=== PATIENT | male | born 1955 | race Caucasian/White ===

== ENCOUNTER 2017-03-22 13:52 | Inpatient (IN) ==
--- NOTE | 2017-03-22 14:08 | Emergency Department Note ---
Disposition Clinical Impression: Neutropenic fever UTI (urinary tract infection) Qualifiers: Urinary tract infection type: site unspecified Hematuria presence: with hematuria Qualified Code(s): N39.0 - Urinary tract infection, site not specified Disposition: Admitted As Inpatient Condition: Undetermined Referrals: Edmund Melton DO [Primary Care Provider] - Forms: ED Satisfaction Letter Time of Disposition: 15:09 Fever HPI - General Chief Complaint: ED Fever Stated Complaint: Fever Time Seen by Provider: 03/22/17 13:57 Source: patient Mode of arrival: EMS Limitations: no limitations Nursing Notes Reviewed: Yes Vital Signs Reviewed: Yes - History of Present Illness HPI Narrative: 61-year-old male with history of lung cancer, bladder cancer, renal cancer on the left side with his kidney removed on the left and a urostomy tube placed on the right arrives [facility] emergency department after concern for neutropenia and fever. The patient went to [facility] who he sees for his cancer treatments today for evaluation to discuss advanced directives and the patient was found to have a fever as high as 104. The patient denies any abdominal pain, cough, neck stiffness, headache, nasal congestion, any other complaints at this time. He is resting comfortably. The patient is noted to be slightly pale in color but acting appropriately and answering all questions. The patient is afebrile here in the emergency department. Exam is benign with the exception of a urostomy tube on the right and slightly pale discoloration of the patient's skin. Patient has an absolute neutrophil count of 380. Pt Subjective Complaint: fever Onset (ago): unknown Maximum Temperature Reported: 104 F Temperature Source: oral Context: on chemotherapy Associated symptoms: Reports: denies other symptoms Improves with: nothing Worsens with: nothing Treatments prior to arrival fever: none - Related Data Home Medications Medication Instructions Recorded Confirmed Aspirin 81 mg PO DAILY 02/21/17 03/22/17 Carvedilol [Coreg] 6.25 mg PO BIDWM 02/21/17 03/22/17 Ferrous Sulfate [Iron] 650 mg PO BID 02/21/17 03/22/17 Gabapentin [Neurontin] 600 mg PO BID 02/21/17 03/22/17 Multivits,Ca,Min/Iron/FA/Lycop 1 tab PO DAILY 02/21/17 03/22/17 [Centrum Men's Tablet] Orphenadrine Citrate 100 mg PO BID PRN 02/21/17 03/22/17 Rosuvastatin [Crestor] 40 mg PO HS 02/21/17 03/22/17 Valsartan [Diovan] 80 mg PO DAILY 02/21/17 03/22/17 Ascorbate Calcium [Vitamin C] 500 mg PO DAILY 03/22/17 03/22/17 Docusate [Colace] 100 mg PO DAILY 03/22/17 03/22/17 Naproxen Sodium [Aleve] 220 mg PO Q12H PRN 03/22/17 03/22/17 Previous Rx's Medication Instructions Recorded Ondansetron [Zofran] 8 mg PO Q8HR #90 tablet 02/21/17 Prochlorperazine Maleate 10 mg PO Q8HR PRN #90 tablet 02/21/17 [Compazine] Ciprofloxacin [Cipro] 500 mg PO BID #20 tablet 03/22/17 Allergies Allergy/AdvReac Type Severity Reaction Status Date / Time No Known Allergies Allergy Verified 03/22/17 10:00 All systems ED: reviewed and negative except as stated. Constitutional: Reports: fever. Denies: chills, weakness Eyes: Denies: eye pain, eye discharge, vision change ENT ED: Denies: ear pain, throat pain, dental pain, hearing loss, epistaxis, congestion, dysphagia Cardiovascular: Denies: chest pain, palpitations, dyspnea on exertion, edema, syncope Respiratory: Denies: cough, dyspnea, wheezes, hemoptysis, stridor Gastrointestinal: Denies: abdominal pain, nausea, vomiting, diarrhea, constipation, hematemesis, melena, hematochezia Genitourinary: Reports: other (Urostomy) Musculoskeletal: Denies: back pain, neck pain, arthralgia, myalgia Integumentary: Denies: rash, abrasion, lesions Neurological: Denies: headache, weakness, numbness, paresthesias, confusion, abnormal gait, vertigo Fever PMH - Past Medical History Medical history: Reports: cancer, diabetes, hyperlipidemia, hypertension, liver disease, other Surgical history: Reports: other (Nephectomy, Right urostomy) Psychiatric history: Reports: no psych history - Social History Smoking Status: Never smoker Alcohol use: Reports: none Drug use: Reports: none Physical Exam - General Limitations: no limitations General appearance: alert, in no apparent distress - Head Head exam: atraumatic, normocephalic, normal inspection - Eye Eye exam: Present: normal appearance, PERRL, EOMI - ENT ENT exam: normal exam, normal oropharynx, mucous membranes moist - Neck Neck exam: Present: normal inspection, full ROM, trachea midline - Chest Chest inspection: Present: normal inspection, symmetric chest wall rise - Respiratory Respiratory exam: Present: normal lung sounds bilaterally - Cardiovascular Cardiovascular exam: Present: regular rate, normal rhythm, normal heart sounds - Abdominal Exam Abdominal exam: Present: soft, Non-Tender, scar, other (Right-sided nephrostomy tube). Absent: tenderness, distention, guarding, rebound, rigidity - Male exam: Present: normal inspection, normal testicular lie, other (uncircumsised ) - Extremities Exam Extremities exam: Present: normal inspection, full ROM. Absent: tenderness, pedal edema - Back Exam Back exam: Present: normal inspection, full ROM. Absent: tenderness - Neurological Exam Neurological exam: Present: alert, oriented X3 - Skin Skin exam: Present: warm, dry, intact, normal color Course - Reevaluation(s) Reevaluation #1: Patient has no nuchal rigidity, no headaches, no AMS. No abdominal pain, rash, cough, sputum production, dyspnea. No diarrhea or bloody stools. The patient has a urostomy in place that is likely chronically infected but given the patient's low absolute neutrophil count I am concerned about possible bacteremia associated with disseminated urine pathogens. Without any other symptoms at this time, I do not feel as though further testing would benefit the patient. We will have the patient on broad-spectrum antibiotics. Lactic acid currently pending. Time: 14:45 - Consultations Consultation #1: We spoke with Dr. Cm in oncology who agreed that the patient should be admitted to the hospital and begun on broad spectrum antibiotic. Patient made aware and agrees to plan. Currently waiting lactic acid level. Time: 14:35 Vital Signs Temperature 98.8 F 03/22/17 13:55 Pulse Rate 86 03/22/17 13:55 Respiratory Rate 16 03/22/17 13:55 Blood Pressure 146/81 03/22/17 13:55 O2 Sat by Pulse Oximetry 98 03/22/17 13:55 Temperature 98.8 F 03/22/17 13:55 Pulse Rate 76 03/22/17 15:00 Respiratory Rate 16 03/22/17 15:00 Blood Pressure 110/82 03/22/17 15:00 O2 Sat by Pulse Oximetry 98 03/22/17 15:00 Oxygen Delivery Oxygen Delivery Room Air Fever - MDM Narrative Medical decision making narrative: We will admit the patient to the hospital for further care given the patient is experiencing neutropenic fever. The patient was started on vancomycin and Zosyn. The only source that is identified at this time is a UTI out of the urostomy. This is likely chronic but given the patient's neutropenia I am concerned about possible dissemination of the patient's bacteria. The patient has no other symptoms or signs indicative of infection. Workup here in the emergency department demonstrates no elevation of lactic acid and a chest x-ray demonstrates no acute process. Labs drawn at the [facility] does demonstrate findings consistent with a low absolute neutrophil count as well as possible urinary tract infection. We will admit the patient to the hospitalist at this time accepted by Dr. Jefferson. Patient agrees to plan. - Medical Records Medical records reviewed: Yes I reviewed the patient's medical records. - Lab Data Lab results reviewed: Yes I reviewed the patient's lab results. Lab Results 03/22/17 Range/Units 14:47 Lactic Acid 0.9 (0.5-2.2) mmol/L - Radiology Data Radiology results reviewed: Yes I reviewed the patient's radiology results.
[2017-03-22] MEDS ORDERED: Piperacillin/Tazobactam 3.375 GM in D5% in Water (Mini-Bag+) 100 ML IVPB ONE (14:32)
[2017-03-22] MEDS ORDERED: 0.9 % Sodium Chloride 1,000 ML IVC ONE (14:34)
[2017-03-22] MEDS ORDERED: Vancomycin 1,000 MG in D5% in Water 250 ML IVPB ONE (14:39)
--- NOTE | 2017-03-22 14:45 | Emergency Department Note ---
START Narrative - START START: I examined this patient and my medical decision-making was reviewed with the Resident Physician. I agree with the documented findings, disposition and treatment plan as described except to the extent set forth below. 61-year-old male presents emergency room for neutropenic fever. Patient is on chemotherapy for bladder cancer with lung metastasis. Patient has a chronic urostomy. Source at this time appears to be a urine infection. His chest x- ray was normal. He has no GI symptoms. No abdominal pain. No rashes. No cough or sputum production. He denies any neck pain or neck stiffness. We have ordered IV vancomycin and Zosyn. Oncology has been consult. Patient will need to be admitted.
[2017-03-22] MEDS ORDERED: Naloxone 0.4 MG/ML INJ IVP PRN (16:10)
[2017-03-22] MEDS ORDERED: Ondansetron 4 MG/2 ML VIAL IVP PRN (16:10)
[2017-03-22] MEDS ORDERED: Acetaminophen 325 MG TABLET PO PRN (16:10)
[2017-03-22] MEDS ORDERED: *HR* Morphine 2 MG/ML SYRINGE IVP PRN (16:10)
[2017-03-22 16:33] LABS: INR 1.2; Prothrombin Time 12.7 Seconds (9.4-12.1)
--- NOTE | 2017-03-22 17:44 | Internal Med History&Physical ---
Date of Encounter: 03/22/17 Time of Encounter: 17:15 Assessment and Plan (1) Neutropenic fever Current visit: Yes Status: Acute Neutropenic fever, present on admission - with severe neutropenia and low absolute neutrophil count - secondary to chemotherapy Patient does have UTI present on admission Continue empiric IV Zosyn, IV Vancomycin, neutropenic precautions Culture - pending Chest x-ray - no acute cardiopulmonary abnormality Cardiac telemetry, labs in a.m., monitor closely (2) UTI (urinary tract infection) Current visit: Yes Status: Acute UTI present on admission, likely secondary to gram-negative bacteria Continue empiric IV Zosyn, IV Vancomycin Cultures - pending Qualifiers: Urinary tract infection type: site unspecified Hematuria presence: without hematuria Qualified Code(s): N39.0 - Urinary tract infection, site not specified (3) 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 Current visit: No Status: Acute Patient has metastatic urothelial cancer, 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 Currently on chemotherapy, follows up with oncology regularly Patient has a history of bladder cancer, renal cancer and prostate cancer He is undergone radical cystectomy, left nephro ureterectomy and prostatectomy Oncology consult (4) Hypertension Current visit: Yes Status: Chronic Essential hypertension, controlled, monitor Continue home dose of Valsartan and Coreg Qualifiers: Hypertension type: essential hypertension Qualified Code(s): I10 - Essential (primary) hypertension (5) Hyperlipidemia Current visit: Yes Status: Chronic Continue Crestor Qualifiers: Hyperlipidemia type: unspecified Qualified Code(s): E78.5 - Hyperlipidemia , unspecified (6) Nonalcoholic fatty liver disease Current visit: Yes Status: Chronic (7) DVT prophylaxis Current visit: Yes Status: Acute Continue SCDs Internal Medicine - H&P: HPI Chief complaint: Fever, neutropenia Admitted From: Emergency Dept Plans for Post Hospital Care: Home History of present illness: Mr. Randolph is a 61 year old male with PMH of bladder cancer, renal carcinoma s/ p left nephrectomy, lung cancer, hyperlipidemia, hypertension, diabetes and s/p urostomy. Patient presents to the ED with complaints of fever. Examined in the room. Patient is awake and alert. Not in any distress. Able to provide history. Family is at bedside. Patient states he was on his way to see his oncologist to discuss advanced directives earlier today. He suddenly developed fever, which was recorded as 104. He denies chest pain or shortness of breath. Denies abdominal pain or diarrhea or vomiting. Denies cough or headache or dizziness. Denies neck stiffness or nasal congestion or any other complaints. No altered mental status. Patient was advised to go to the ER by his oncologist for fever and neutropenia. Patient is currently undergoing chemotherapy for lung cancer. He follows up regularly with his oncologist. Initial workup in the ED is negative. Patient had labs drawn this morning and he was found to have severe neutropenia with a severely low absolute neutrophil count. Patient is being admitted for neutropenic fever. He will need IV antibiotics, cultures and he will be on neutropenic precautions. CODE STATUS full code. Past Med Surg Social Fam HX - Past Medical History Medical history: cancer, diabetes, hyperlipidemia, hypertension, liver disease, other Psychiatric history: no psych history - Past Surgical History Surgical History: other (Nephrectomy, Right urostomy) - Social History Smoking Status: Never smoker Smokeless Tobacco Status: No Alcohol use: none Drug use: none Internal Medicine - H&P: Meds Aspirin 81 mg PO DAILY 02/21/17 [History] Carvedilol [Coreg] 6.25 mg PO BIDWM 02/21/17 [History] Ferrous Sulfate [Iron] 650 mg PO BID 02/21/17 [History] Gabapentin [Neurontin] 600 mg PO BID 02/21/17 [History] Multivits,Ca,Min/Iron/FA/Lycop [Centrum Men's Tablet] 1 tab PO DAILY 02/21/17 [ History] Ondansetron [Zofran] 8 mg PO Q8HR #90 tablet 02/21/17 [Rx] Orphenadrine Citrate 100 mg PO BID PRN 02/21/17 [History] Prochlorperazine Maleate [Compazine] 10 mg PO Q8HR PRN #90 tablet 02/21/17 [Rx] Rosuvastatin [Crestor] 40 mg PO HS 02/21/17 [History] Valsartan [Diovan] 80 mg PO DAILY 02/21/17 [History] Ascorbate Calcium [Vitamin C] 500 mg PO DAILY 03/22/17 [History] Ciprofloxacin [Cipro] 500 mg PO BID #20 tablet 03/22/17 [Rx] Docusate [Colace] 100 mg PO DAILY 03/22/17 [History] Naproxen Sodium [Aleve] 220 mg PO Q12H PRN 03/22/17 [History] 3 Allergy/AdvReac Type Severity Reaction Status Date / Time No Known Allergies Allergy Verified 03/22/17 10:00 All Systems PM: A 10-system review of systems was performed and is negative for pertinent findings except as documented above in the HPI. - Constitutional Constitutional: fatigue, fever(s), weakness - EENT Eyes: no blurry vision - Cardiovascular Cardiovascular ROS IM: no chest pain, no claudication, no diaphoresis, no dyspnea, no dyspnea on exertion, no edema, no lightheadedness, no orthopnea, no palpitations, no syncope - Respiratory Respiratory: no cough, no dyspnea, no hemoptysis, no dyspnea on exertion, no wheezing, no chest congestion - Gastrointestinal Gastrointestinal: no abdominal pain, no bloating, no cramping, no diarrhea, no hematemesis, no hematochezia, no melena, no nausea, no vomiting - Genitourinary Genitourinary ROS male: no dysuria, no flank pain - Musculoskeletal Musculoskeletal ROS IM: no back pain - Neurological Neurological ROS: no abnormal gait, no confusion, no dizziness, no focal weakness, no numbness, no tingling - Constitutional Vitals: Temp Pulse Resp BP Pulse Ox 98.0 F 73 14 134/83 97 03/22/17 16:27 03/22/17 16:27 03/22/17 16:27 03/22/17 16:27 03/22/17 16:27 General appearance: Present: cooperative, A&O X 3, pleasant, no acute distress, answers questions appropriately - Head Head exam: Present: atraumatic - Eye Eye exam: Present: EOMI - ENT ENT exam: Present: mucous membranes moist - Respiratory Respiratory exam: Present: CTAB. Absent: accessory muscle use, chest wall tenderness, rales, rhonchi, wheezes, tachypnea - Cardiovascular Cardiovascular exam: Present: RRR, +S1, +S2 - GI/Abdominal GI/Abdominal exam: Present: soft. Absent: distended, firm, guarding, tenderness Additional comments: Urostomy bag in place, draining clear urine, site looks okay - Extremities Exam Extremities exam: Present: radial pulses palpable and symmetrical. Absent: calf tenderness, cyanotic, pedal edema - Neurological Exam Neurological exam: Present: alert, CN II-XII intact, oriented X3, no focal deficits. Absent: facial droop, speech deficit
[2017-03-22] MEDS: Piperacillin/Tazobactam 3.375 GM in D5% in Water (Mini-Bag+) 100 ML IVPB SCH (17:48)
[2017-03-22] MEDS: 0.9 % Sodium Chloride 1,000 ML IVC SCH (17:49)
--- NOTE | 2017-03-22 18:58 | Oncology Inp Consult Note ---
Date of Encounter: 03/22/17 Time of Encounter: 18:56 Assessment and Plan (1) Neutropenic sepsis Status: Acute Assessment and plan: - ANC of 400 consistent with severe chemo-related neutropenia. - Lactic acid within normal limits, but blood pressure remains soft. Tachycardia has improved, now HR within normal parameters - I appreciate primary team excellent care. Continue IVF, broad spectrum antibiotics wth vanco/zosyn. Follow up results of urinary and blood cultures. Source in view of abnormal UA seems to be his urine, although he reports not clear localizing symptoms.CXR not suggestive of PNA. - Neutropnic precautions. - I would suggest to add neupogen 300 mcg SQ daily until ANC is 1000 or above. (2) Anemia Status: Acute Assessment and plan: More likely secondary to recent chemotherapy. Continue monitoring with daily CBCs and transfuse if Hb levels are 7 or less ( or HCT 21 or lower). Qualifiers: Anemia type: other cause Other causes of anemia: other cause, not classified Qualified Code(s): D64.89 - Other specified anemias (3) 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 Status: Acute Assessment and plan: - Continue holding chemotherapy ( it was due tomorrow) in view of severe neutropenia. Please arrange for follow up with primary oncology once he is ready for discharge to discuss time to resume chemotherapy. - Data of Consult Requesting Physician: Jalen Anguiano DO Primary Care Provider: Edmund Melton DO - Consult Narrative Reason for consult: management of sepsis in the settings of severe neutropenia History of present illness: Mr. Randolph is a 61 year old male with history of DM, fatty liver disease, HTN, and history of bladder cancer that has progressed to stage IV with lung mets. His previous management included removal of bladder, prostate and left kidney at [facility], being followed by Dr. Suh since 2012. 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 His lung metastasis were found with a CT chest in november 2016, and followed with CT in january 2017, biopsy was not considered due to suggestive radiologic pattern. He was started on gemzar and carboplatin on 03/02/17. Chemo held on 03/16 due to plaelets of 25,000. He was seen today at the outpatient oncology clinic, and referred to the ED after reporting fever of 104F. His temperature in the office was 103F, HR 124, and SBP in the 120s. He was evaluated in the ED, his urine shows nitrates suspicious for UTI related sepsis and started on broad spectrum antibiotics with zosyn. Primary team added vanco for empiric coverage untill results of blood and urine cultures are available. He denies a history of frequent UTI. He reports shivering early today, but feels that his symptoms have improved. Reports that his SBP usually runs in the 130s -110s, currently in the 100-120 range, but not tachycardic. He reports improvement of his subjective complaints since admission. His hemoglobin have dropped a few points, down to 10, but there are not bleeding events. His platelet count remains within normal parameters. His serum lactic acid was within normal values. Family was at bedside during the visit. Past Med Surg Social Fam HX - Past Medical History Medical history: cancer, diabetes, hyperlipidemia, hypertension, liver disease, other Psychiatric history: no psych history - Past Surgical History Surgical History: other (Nephrectomy, Right urostomy) - Social History Smoking Status: Never smoker Smokeless Tobacco Status: No Alcohol use: none Drug use: none Medications and Allergies Aspirin 81 mg PO DAILY 02/21/17 [History] Carvedilol [Coreg] 6.25 mg PO BIDWM 02/21/17 [History] Ferrous Sulfate [Iron] 650 mg PO BID 02/21/17 [History] Gabapentin [Neurontin] 600 mg PO BID 02/21/17 [History] Multivits,Ca,Min/Iron/FA/Lycop [Centrum Men's Tablet] 1 tab PO DAILY 02/21/17 [ History] Ondansetron [Zofran] 8 mg PO Q8HR #90 tablet 02/21/17 [Rx] Orphenadrine Citrate 100 mg PO BID PRN 02/21/17 [History] Prochlorperazine Maleate [Compazine] 10 mg PO Q8HR PRN #90 tablet 02/21/17 [Rx] Rosuvastatin [Crestor] 40 mg PO HS 02/21/17 [History] Valsartan [Diovan] 80 mg PO DAILY 02/21/17 [History] Ascorbate Calcium [Vitamin C] 500 mg PO DAILY 03/22/17 [History] Ciprofloxacin [Cipro] 500 mg PO BID #20 tablet 03/22/17 [Rx] Docusate [Colace] 100 mg PO DAILY 03/22/17 [History] Naproxen Sodium [Aleve] 220 mg PO Q12H PRN 03/22/17 [History] 3 Allergy/AdvReac Type Severity Reaction Status Date / Time No Known Allergies Allergy Verified 03/22/17 10:00 Constitutional: Present: chills, fever(s) Cardiovascular: Present: rapid heart rate. Absent: chest pain, chest pain with activity, dyspnea Respiratory: Absent: cough, dyspnea, hemoptysis Gastrointestinal: Absent: abdominal pain, dysphagia Genitourinary: other (urostomy in place.) Musculoskeletal: Absent: joint swelling, myalgias Integumentary: Absent: photosensitivity, pruritus Neurological: Absent: behavioral changes, dizziness, other visual disturbances Psychiatric: Absent: anxiety, behavioral changes, hallucinations Hematologic/Lymphatic: Present: as per HPI Oncology - Exam - Constitutional Vitals: Temp Pulse Resp BP Pulse Ox 98.0 F 73 14 134/83 97 03/22/17 16:27 03/22/17 16:27 03/22/17 16:27 03/22/17 16:27 03/22/17 16:27 - Head Head exam: Present: normal inspection, normocephalic - Eye Eye exam: Present: EOMI, normal appearance - ENT ENT exam: Present: normal exam - Neck Neck exam: Present: normal inspection. Absent: meningismus, tenderness - Respiratory Respiratory exam: Present: CTAB. Absent: prolonged expiratory phase, rales, respiratory distress - Cardiovascular Cardiovascular exam: Present: RRR, +S1, +S2. Absent: irregular rhythm - GI/Abdominal GI/Abdominal exam: Present: normal bowel sounds, soft (urostomy ). Absent: organomegaly, pulsatile mass, rebound, rigid - Extremities Exam Extremities exam: Present: normal inspection. Absent: pedal edema, tenderness - Back Exam Back exam: Absent: paraspinal tenderness - Neurological Exam Neurological exam: Present: alert, altered, oriented X3 - Psychiatric Psychiatric exam: Present: normal affect, normal mood. Absent: depressed, flat affect - Skin Skin exam: Present: intact, normal color, pallor. Absent: erythema Consult Discharge Plan - Plan Referrals: Edmund Melton DO [Primary Care Provider] -
[2017-03-23] MEDS: Piperacillin/Tazobactam 3.375 GM in D5% in Water (Mini-Bag+) 100 ML IVPB SCH ×3 (02:55→19:59)
[2017-03-23 03:28] LABS: Nucleated Red Blood Cells 1.6 /100 WBC (0)
[2017-03-23 03:29] LABS: Hematocrit 29.5 % (37.5-50.1); Hemoglobin 9.8 g/dL (12.9-16.9); Mean Corpuscular HGB Conc 33.2 g/dL (31.6-35.5); Mean Corpuscular Hemoglobin 30.1 pg (28.0-33.3); Mean Corpuscular Volume 90.5 fL (83.0-100.0); Mean Platelet Volume 9.1 fL (9.4-12.4); Neutrophils # 0.2 K/mcL (1.6-8.9); Platelet Count 173 K/mcL (140-400); Red Blood Count 3.26 M/mcL (4.19-5.50); Red Cell Distribution Width 12.6 % (11.5-14.5)
[2017-03-23 03:30] LABS: Bilirubin,Urine Negative (Negative); Blood,Urine Negative (Negative); Clarity,Urine Clear (Clear); Color,Urine Yellow (Yellow); Glucose,Urine (UA) Normal (Normal); Ketones,Urine Negative (Negative); Leukocyte Esterase,Urine Negative (Negative); Nitrite,Urine Negative (Negative); Protein,Urine Negative (Neg-Trace); Specific Gravity,Urine 1.013 (1.010-1.025); Urobilinogen,Urine Normal (Normal)
[2017-03-23 03:41] LABS: Alanine Aminotransferase 60 Units/L (0-55); Albumin 2.9 g/dL (3.5-5.0); Albumin/Globulin Ratio 0.9 (1.1-2.2); Alkaline Phosphatase 99 Units/L (38-126); Aspartate Amino Transferase 32 Units/L (5-34); BUN/Creatinine Ratio 7 (6-26); Bilirubin,Total 0.4 mg/dL (0.2-1.2); Blood Urea Nitrogen 9 mg/dL (8-26); Calcium 8.2 mg/dL (8.6-10.8); Carbon Dioxide 22 mEq/L (19-29); Chloride 111 mEq/L (98-109); Globulin 3.3 g/dL (2.4-3.5); Glucose 92 mg/dL (70-99); Magnesium 1.8 mg/dL (1.6-2.6); Osmolality,Calculated 290 (280-300); Phosphorous 2.8 mg/dL (2.3-4.7); Potassium 4.1 mEq/L (3.5-4.5); Sodium 141 mEq/L (136-145); Total Protein 6.2 g/dL (6.0-8.3); eGFR For African Americans > 60 (> 60); eGFR For Non-African Americans 55 (> 60)
[2017-03-23 04:09] LABS: Eosinophils # 0.1 K/mcL (0.0-0.6); Lymphocytes # 0.7 K/mcL (0.6-4.6); Monocytes # 0.2 K/mcL (0.0-1.3)
[2017-03-23 04:10] LABS: Large Platelets Present (Not Present); Platelet Estimate Normal (Normal); Polychromasia 1+ (Not Present)
[2017-03-23] MEDS: 0.9 % Sodium Chloride 1,000 ML IVC SCH (06:20)
[2017-03-23] MEDS: Ascorbic Acid 500 MG TABLET PO SCH (07:59)
[2017-03-23] MEDS: Aspirin 81 MG TAB.CHEW PO SCH (08:00)
[2017-03-23] MEDS: Valsartan 80 MG TABLET PO SCH (08:00)
[2017-03-23] MEDS: Multivit/Ca/Min/Fe/FA 1 TAB TABLET PO SCH (08:00)
--- NOTE | 2017-03-23 09:38 | Oncology Inp Progress Note ---
Date of Encounter: 03/23/17 Time of Encounter: 09:36 (1) Neutropenia Current Visit: Yes Status: Acute Assessment and plan: - Worsening, ANC dropped today to 200. Please start neupogen 300 mcg SQ daily and discontinue once ANC is above 1000. - Follow up CBC diff daily. Qualifiers: Neutropenia type: secondary to cancer chemotherapy Qualified Code(s): D70.1 - Agranulocytosis secondary to cancer chemotherapy; T45.1X5A - Adverse effect of antineoplastic and immunosuppressive drugs, initial encounter (2) Sepsis Current Visit: Yes Status: Acute Assessment and plan: - I appreciate primary team excellent care. Overall seems to be improving. Remains afebrile. Cultures results still not available. - Receiving management with empiric broad specrum antibiotics. 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 Please arrange for follow up with primary oncology once he is ready for discharge to discuss time to resume chemotherapy. Oncology: Subj Interval history: ANC has dropped to 0.2 ( from 0.4), but overall he reports feeling ok. Denies significant overnight events or acute complaints. ROS negative for CP, SOB, overnight fever. - Constitutional Vitals: Vital Signs Temp Pulse Resp BP Pulse Ox 03/23/17 07:02 98.9 F 73 16 126/78 99 03/23/17 04:00 97.6 F 77 16 120/82 100 03/22/17 23:27 97.4 F L 67 16 100/72 99 03/22/17 21:00 99 F 80 16 105/72 98 03/22/17 16:27 98.0 F 73 14 134/83 97 03/22/17 16:19 16 117/78 Intake and Output 03/22/17 03/23/17 03/23/17 23:59 07:59 15:59 Intake Total 520 / 520 1200 / 1200 Output Total 1125 / 1125 0 / 0 Balance -605 / -605 1200 / 1200 Intake: IV Fluids 100 / 100 1000 / 1000 0.9 % Sodium Chloride 1,000 ML 1000 / 1000 @ 60 mls/hr IVC .[id number] [facility] Rx #:[id number] Zosyn 3.375 GM In Dextrose 5% ( 100 / 100 Minibag+) 100 ML 100 ML @ 25 mls/hr IVPB Q8H [facility] Rx#: [id number] Oral 420 / 420 200 / 200 Output: Urine 425 / 425 Urostomy 700 / 700 0 / 0 Other: Meal Dinner Percent of Meal Consumed 50% Weight 88.4 kg 90.5 kg Blood Glucose* 118 117 Patient Weight 03/23/17 23:59 Weight 90.5 kg - Respiratory Respiratory exam: Present: CTAB. Absent: rales - Cardiovascular Cardiovascular exam: Present: +S1. Absent: systolic murmur - GI/Abdominal GI/Abdominal exam: Present: soft Oncology: Obj Data - Labs CBC & Chem 7: 03/23/17 02:55 03/23/17 02:55 Labs: Laboratory Results - last 24 hr 03/22/17 03/22/17 03/23/17 16:41 21:03 02:55 WBC 1.3 L RBC 3.26 L Hgb 9.8 L Hct 29.5 L MCV 90.5 MCH 30.1 MCHC 33.2 RDW 12.6 Plt Count 173 MPV 9.1 L Seg Neutrophils % 16.0 Lymphocytes % 52.0 Monocytes % 18.0 Eosinophils % 10.0 Basophils % 2.0 Myelocytes % 2.0 H Neutrophils # 0.2 L Lymphocytes # 0.7 Monocytes # 0.2 Eosinophils # 0.1 Basophils # 0.0 Nucleated RBCs/100 WBC 1.6 H Platelet Estimate Normal Large Platelets Present A Polychromasia 1+ A Sodium Potassium Chloride Carbon Dioxide BUN Creatinine Est GFR ( Amer) Est GFR (Non-Af Amer) BUN/Creatinine Ratio Glucose POC Glucose 106 H 118 H Calculated Osmolality Calcium Phosphorus Magnesium Total Bilirubin AST ALT Alkaline Phosphatase Serum Total Protein Albumin Globulin Albumin/Globulin Ratio Urine Color Urine Clarity Urine pH Ur Specific [place] Urine Protein Urine Glucose (UA) Urine Ketones Urine Blood Urine Nitrite Urine Bilirubin Urine Urobilinogen Ur Leukocyte Esterase 03/23/17 03/23/17 02:55 03:00 WBC RBC Hgb Hct MCV MCH MCHC RDW Plt Count MPV Seg Neutrophils % Lymphocytes % Monocytes % Eosinophils % Basophils % Myelocytes % Neutrophils # Lymphocytes # Monocytes # Eosinophils # Basophils # Nucleated RBCs/100 WBC Platelet Estimate Large Platelets Polychromasia Sodium 141 Potassium 4.1 Chloride 111 H Carbon Dioxide 22 BUN 9 Creatinine 1.31 H Est GFR ( Amer) > 60 Est GFR (Non-Af Amer) 55 L BUN/Creatinine Ratio 7 Glucose 92 POC Glucose Calculated Osmolality 290 Calcium 8.2 L Phosphorus 2.8 Magnesium 1.8 Total Bilirubin 0.4 AST 32 ALT 60 H Alkaline Phosphatase 99 Serum Total Protein 6.2 Albumin 2.9 L Globulin 3.3 Albumin/Globulin Ratio 0.9 L Urine Color Yellow Urine Clarity Clear Urine pH 6.0 Ur Specific [place] 1.013 Urine Protein Negative Urine Glucose (UA) Normal Urine Ketones Negative Urine Blood Negative Urine Nitrite Negative Urine Bilirubin Negative Urine Urobilinogen Normal Ur Leukocyte Esterase Negative - ABG Interpretation ABG results: PT/INR, D-dimer PT 12.7 Seconds (9.4-12.1) H 03/22/17 14:17 Consult Discharge Plan - Plan Referrals: Edmund Melton DO [Primary Care Provider] -
[2017-03-23] MEDS: Vancomycin 1,250 MG in D5% in Water 250 ML IVPB SCH (10:00)
[2017-03-23] MEDS: Famotidine 20 MG/2 ML VIAL IVP SCH (11:21)
--- NOTE | 2017-03-23 19:06 | Event Note ---
Date of Encounter: 03/23/17 Time of Encounter: 14:00 I examined this patient and my medical decision-making was reviewed with the Resident Physician on 03/23/17. I agree with the documented findings, disposition and treatment plan as described except to the extent set forth below. Mr. Randolph is currently admitted for neutropenic fever. He remains moderate to high risk due to potential for worsening infectious status. Mr. Randolph feels OK but has had some chills today. No high fevers. No CP or SOB. No cough. No diarrhea. Exam alert. Comfortable Mucus membranes dry Heart reg Lungs clear Abd soft No edema I/P 1. Neutropenic fever 2. Bladder cancer 3. Anemia due to cancer 4. HTN 5. Sepsis - resolved 6 HLD Further diagnoses and plan per progress note of this date.
--- NOTE | 2017-03-23 23:46 | Internal Med Progress Note ---
Addendum entered and electronically signed by Gifty Pagan DO 03/24/17 08: 07: Original Note: <Gifty Pagan - Last Filed: 03/23/17 23:17> Date of Encounter: 03/23/17 Time of Encounter: 23:18 - Assessment and plan (1) Neutropenic fever Current Visit: Yes Status: Acute Assessment and plan: -present on admission, severe neutropenia & low absolute neutrophil count 2/2 chemo -IV vancomycin and IV zosyn for now -neutropenic cautions -await urine and blood culture results -per oncology: neupogen injections until absolute neutrophil count 1000 or above -monitor CBC with diff (2) UTI (urinary tract infection) Current Visit: Yes Status: Acute Assessment and plan: -present on admission -empiric IV vancomycin and IV zosyn -urine cultures pending Qualifiers: Urinary tract infection type: site unspecified Hematuria presence: without hematuria Qualified Code(s): N39.0 - Urinary tract infection, site not specified (3) 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 Current Visit: No Status: Acute Assessment and plan: -metastatic urothelial cancer, high grade neoplasm with lung metastasis -h/o bladder cancer, renal cell carcinoma, prostate cancer -follows with oncology regularly -currently receives chemotherapy, no plans for inpatient chemo 2/2 severity of neutropenia (4) DVT prophylaxis Current Visit: Yes Status: Acute Assessment and plan: continue SCDs (5) Hypertension Current Visit: Yes Status: Chronic Assessment and plan: continue home meds Qualifiers: Hypertension type: essential hypertension Qualified Code(s): I10 - Essential (primary) hypertension (6) Hyperlipidemia Current Visit: Yes Status: Chronic Assessment and plan: Continue crestor Qualifiers: Hyperlipidemia type: unspecified Qualified Code(s): E78.5 - Hyperlipidemia , unspecified (7) Nonalcoholic fatty liver disease Current Visit: Yes Status: Chronic - Subjective Interval history: Pt seen and examined at bedside. Pt comfortable in bed, no complaints. He denies chills, chest pain, dyspnea, cough, wheezing, N/V, abdominal pain, pyuria , hematuria. Admits to fever, but states he felt better after napping for a couple hours. - Constitutional Vitals: Temp Pulse Resp BP Pulse Ox 98.1 F 77 18 120/77 99 03/23/17 18:53 03/23/17 18:53 03/23/17 18:53 03/23/17 18:53 03/23/17 20:46 General appearance: Present: cooperative, A&O X 3, pleasant, no acute distress, answers questions appropriately - Head Head exam: Present: atraumatic, normocephalic - Eye Eye exam: Present: EOMI, normal appearance, sclera anicteric - Neck Neck exam general surgery: Present: full ROM, supple - Respiratory Respiratory exam: Present: CTAB. Absent: rales, respiratory distress, wheezes - Cardiovascular Cardiovascular exam: Present: RRR, +S1, +S2 - Additional comments: Urostomy bag attached. Urine is clear, no hematuria, no pyuria. - Neurological Exam Neurological exam: Present: alert, oriented X3, no focal deficits - Other Additional findings: b/l DP pulses palpable and symmetric Internal Medicine: Result - Labs CBC & Chem 7: 03/23/17 02:55 03/23/17 02:55 Labs: Short CBC 03/23/17 Range/Units 02:55 WBC 1.3 L (4.3-11.1) K/mcL Hgb 9.8 L (12.9-16.9) g/dL Hct 29.5 L (37.5-50.1) % Plt Count 173 (140-400) K/mcL Neutrophils # 0.2 L (1.6-8.9) K/mcL BMP 03/23/17 02:55 Sodium 141 Potassium 4.1 Chloride 111 H Carbon Dioxide 22 BUN 9 Creatinine 1.31 H Glucose 92 Calcium 8.2 L Liver Function 03/23/17 Range/Units 02:55 Total Bilirubin 0.4 (0.2-1.2) mg/dL AST 32 (5-34) Units/L ALT 60 H (0-55) Units/L Alkaline Phosphatase 99 (38-126) Units/L Albumin 2.9 L (3.5-5.0) g/dL Urine 03/23/17 Range/Units 03:00 Urine Color Yellow (Yellow) Urine Clarity Clear (Clear) Urine pH 6.0 (5.0-8.0) pH Units Ur Specific [place] 1.013 (1.010-1.025) Urine Protein Negative (Neg-Trace) mg/dL Urine Glucose (UA) Normal (Normal) mg/dL - ABG Interpretation ABG results: PT/INR, D-dimer PT 12.7 Seconds (9.4-12.1) H 03/22/17 14:17 Consult Discharge Plan - Plan Referrals: Edmund Melton DO [Primary Care Provider] - 03/28/17 11:30 am <Jalen Anguiano - Last Filed: 03/24/17 18:13> Date of Encounter: 03/24/17 - Assessment and plan (1) Neutropenia Current Visit: Yes Status: Acute Qualifiers: Neutropenia type: secondary to cancer chemotherapy Qualified Code(s): D70.1 - Agranulocytosis secondary to cancer chemotherapy; T45.1X5A - Adverse effect of antineoplastic and immunosuppressive drugs, initial encounter (2) UTI (urinary tract infection) Current Visit: Yes Status: Acute Qualifiers: Urinary tract infection type: site unspecified Hematuria presence: without hematuria Qualified Code(s): N39.0 - Urinary tract infection, site not specified (3) Hypertension Current Visit: Yes Status: Chronic Qualifiers: Hypertension type: essential hypertension Qualified Code(s): I10 - Essential (primary) hypertension (4) Hyperlipidemia Current Visit: Yes Status: Chronic Qualifiers: Hyperlipidemia type: mixed hyperlipidemia Qualified Code(s): E78.2 - Mixed hyperlipidemia (5) 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 Current Visit: No Status: Acute - Constitutional Vitals: Temp Pulse Resp BP Pulse Ox 97.9 F 73 18 137/89 98 03/24/17 15:22 03/24/17 15:22 03/24/17 15:22 03/24/17 15:22 03/24/17 15:22 Internal Medicine: Result - Labs CBC & Chem 7: 03/24/17 09:10 03/24/17 09:10 Labs: Short CBC 03/24/17 Range/Units 09:10 WBC 3.5 L D (4.3-11.1) K/mcL Hgb 10.5 L (12.9-16.9) g/dL Hct 31.0 L (37.5-50.1) % Plt Count 227 (140-400) K/mcL Neutrophils # 1.7 (1.6-8.9) K/mcL BMP 03/24/17 09:10 Sodium 142 Potassium 3.8 Chloride 110 H Carbon Dioxide 23 BUN 6 L Creatinine 1.38 H Glucose 137 H Calcium 8.4 L - ABG Interpretation ABG results: PT/INR, D-dimer PT 12.7 Seconds (9.4-12.1) H 03/22/17 14:17 - Attending Attestation I examined this patient and my medical decision-making was reviewed with the Resident Physician on 03/24/17. I agree with the documented findings, disposition and treatment plan as described except to the extent set forth below. Mr. Randolph is currently admitted for acute neutropenic fever. He has a UTI and is on IV abx. He remains moderate to high risk due to potential for worsening infectious status. Mr Randolph is doing OK. No further fever. ANC 1700 today. Urine cx positive. No CP or SOB. Exam alert. Comfortable Heart reg No wheeze Abd soft No edema I/P 1. Enterococcal UTI 2. Neutropenic fever Further diagnoses and plan as above.
[2017-03-24] MEDS: Piperacillin/Tazobactam 3.375 GM in D5% in Water (Mini-Bag+) 100 ML IVPB SCH ×2 (01:58→10:59)
[2017-03-24] MEDS: Ascorbic Acid 500 MG TABLET PO SCH (08:53)
[2017-03-24] MEDS: Valsartan 80 MG TABLET PO SCH (08:53)
[2017-03-24] MEDS: Aspirin 81 MG TAB.CHEW PO SCH (08:54)
[2017-03-24] MEDS: Famotidine 20 MG/2 ML VIAL IVP SCH (08:54)
[2017-03-24] MEDS: Multivit/Ca/Min/Fe/FA 1 TAB TABLET PO SCH (08:54)
[2017-03-24] MEDS: Vancomycin 1,250 MG in D5% in Water 250 ML IVPB SCH (09:11)
[2017-03-24 09:21] LABS: Eosinophils # 0.1 K/mcL (0.0-0.6); Hemoglobin 10.5 g/dL (12.9-16.9); Mean Corpuscular HGB Conc 33.9 g/dL (31.6-35.5); Mean Corpuscular Hemoglobin 29.7 pg (28.0-33.3); Mean Corpuscular Volume 87.8 fL (83.0-100.0); Platelet Count 227 K/mcL (140-400); Red Blood Count 3.53 M/mcL (4.19-5.50); Red Cell Distribution Width 12.7 % (11.5-14.5)
[2017-03-24 09:51] LABS: BUN/Creatinine Ratio 4 (6-26); Blood Urea Nitrogen 6 mg/dL (8-26); Calcium 8.4 mg/dL (8.6-10.8); Carbon Dioxide 23 mEq/L (19-29); Chloride 110 mEq/L (98-109); Glucose 137 mg/dL (70-99); Osmolality,Calculated 294 (280-300); Potassium 3.8 mEq/L (3.5-4.5); Sodium 142 mEq/L (136-145); eGFR For African Americans > 60 (> 60); eGFR For Non-African Americans 52 (> 60)
[2017-03-24 09:55] LABS: Monocytes # 0.8 K/mcL (0.0-1.3); Neutrophils # 1.7 K/mcL (1.6-8.9)
[2017-03-24 09:56] LABS: Platelet Estimate Normal (Normal); Polychromasia 1+ (Not Present)
--- NOTE | 2017-03-24 11:35 | Internal Med Progress Note ---
<Gifty Pagan - Last Filed: 03/24/17 21:35> Date of Encounter: 03/24/17 Time of Encounter: 11:31 - Assessment and plan (1) Neutropenic fever Current Visit: Yes Status: Acute Assessment and plan: -afebrile -Blood cultures negative x2 -Urine cultures positive for enterococcus -Day 3 of antibiotics IV vancomycin, zosyn, and levaquin (PO, first dose today) . 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 Current Visit: Yes Status: Acute Assessment and plan: -metastatic urothelial cancer, high grade neoplasm with lung metastasis -h/o bladder cancer, renal cell carcinoma, prostate cancer -follows with oncology regularly -pt safe to be discharged home, as per oncology * f/u with oncology as an outpatient to discuss a time for next chemo treatment (4) DVT prophylaxis Current Visit: Yes Status: Acute Assessment and plan: Continue SCDs (5) Hypertension Current Visit: Yes Status: Chronic Assessment and plan: -well controlled on carvedilol and valsartan Qualifiers: Hypertension type: essential hypertension Qualified Code(s): I10 - Essential (primary) hypertension (6) Hyperlipidemia Current Visit: Yes Status: Chronic Assessment and plan: Continue crestor Qualifiers: Hyperlipidemia type: mixed hyperlipidemia Qualified Code(s): E78.2 - Mixed hyperlipidemia (7) Nonalcoholic fatty liver disease Current Visit: Yes Status: Chronic - Subjective Interval history: Pt seen and examined at bedside. Pt feels well and has no complaints today. He denies chills, chest pain, dyspnea, cough, N/V, abdominal pain. - Constitutional Vitals: Temp Pulse Resp BP Pulse Ox 97.8 F 68 16 121/84 98 03/24/17 07:23 03/24/17 07:23 03/24/17 07:23 03/24/17 07:23 03/24/17 09:15 General appearance: Present: cooperative, A&O X 3, pleasant, no acute distress, answers questions appropriately - Head Head exam: Present: atraumatic, normocephalic - Eye Eye exam: Present: EOMI - Neck Neck exam general surgery: Present: full ROM, supple - Respiratory Respiratory exam: Present: CTAB. Absent: respiratory distress - Cardiovascular Cardiovascular exam: Present: RRR, +S1, +S2 - GI/Abdominal GI/Abdominal exam: Present: normal bowel sounds, soft. Absent: tenderness - Neurological Exam Neurological exam: Present: alert, oriented X3, no focal deficits Internal Medicine: Result - Labs CBC & Chem 7: 03/24/17 09:10 03/24/17 09:10 Labs: Short CBC 03/24/17 Range/Units 09:10 WBC 3.5 L D (4.3-11.1) K/mcL Hgb 10.5 L (12.9-16.9) g/dL Hct 31.0 L (37.5-50.1) % Plt Count 227 (140-400) K/mcL Neutrophils # 1.7 (1.6-8.9) K/mcL BMP 03/24/17 09:10 Sodium 142 Potassium 3.8 Chloride 110 H Carbon Dioxide 23 BUN 6 L Creatinine 1.38 H Glucose 137 H Calcium 8.4 L - ABG Interpretation ABG results: PT/INR, D-dimer PT 12.7 Seconds (9.4-12.1) H 03/22/17 14:17 Consult Discharge Plan - Plan Instructions: Urinary Tract Infection in Men (DC), Sepsis (DC), Chronic Hypertension (DC), Neutropenia (DC), Neutropenia (GEN), Neutropenic Precautions (GEN), Anemia (GEN) Additional Instructions: Please return to ER if you have return of fever, chills. Please follow up with PCP and oncology appointments Please finished your prescribed regimen of antibiotics as prescribed. Referrals: Edmund eMlton DO [Primary Care Provider] - 03/28/17 11:30 am <Jalen Anguiano - Last Filed: 03/25/17 09:22> Date of Encounter: 03/24/17 - Assessment and plan (1) Neutropenia Current Visit: Yes Status: Acute Qualifiers: Neutropenia type: secondary to cancer chemotherapy Qualified Code(s): D70.1 - Agranulocytosis secondary to cancer chemotherapy; T45.1X5A - Adverse effect of antineoplastic and immunosuppressive drugs, initial encounter (2) UTI (urinary tract infection) Current Visit: Yes Status: Acute Qualifiers: Urinary tract infection type: site unspecified Hematuria presence: without hematuria Qualified Code(s): N39.0 - Urinary tract infection, site not specified (3) Hypertension Current Visit: Yes Status: Chronic Qualifiers: Hypertension type: essential hypertension Qualified Code(s): I10 - Essential (primary) hypertension (4) Hyperlipidemia Current Visit: Yes Status: Chronic Qualifiers: Hyperlipidemia type: mixed hyperlipidemia Qualified Code(s): E78.2 - Mixed hyperlipidemia (5) 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 Current Visit: Yes Status: Acute - Constitutional Vitals: Temp Pulse Resp BP Pulse Ox 97.9 F 73 18 137/89 98 03/24/17 15:22 03/24/17 15:22 03/24/17 15:22 03/24/17 15:22 03/24/17 15:22 Internal Medicine: Result - Labs CBC & Chem 7: 03/25/17 05:27 03/24/17 09:10 Labs: Short CBC 03/24/17 Range/Units 09:10 WBC 3.5 L D (4.3-11.1) K/mcL Hgb 10.5 L (12.9-16.9) g/dL Hct 31.0 L (37.5-50.1) % Plt Count 227 (140-400) K/mcL Neutrophils # 1.7 (1.6-8.9) K/mcL BMP 03/24/17 09:10 Sodium 142 Potassium 3.8 Chloride 110 H Carbon Dioxide 23 BUN 6 L Creatinine 1.38 H Glucose 137 H Calcium 8.4 L - ABG Interpretation ABG results: PT/INR, D-dimer PT 12.7 Seconds (9.4-12.1) H 03/22/17 14:17 - Attending Attestation I examined this patient and my medical decision-making was reviewed with the Resident Physician on 03/24/17. I agree with the documented findings, disposition and treatment plan as described except to the extent set forth below. Mr. Randolph is currently admitted for acute neutropenic fever. He has a UTI and is on IV abx. He remains moderate to high risk due to potential for worsening infectious status. Mr Randolph is doing OK. No further fever. ANC 1700 today. Urine cx positive. No CP or SOB. Exam alert. Comfortable Heart reg No wheeze Abd soft No edema I/P 1. Enterococcal UTI 2. Neutropenic fever Further diagnoses and plan as above.
--- NOTE | 2017-03-24 15:09 | Oncology Inp Progress Note ---
Date of Encounter: 03/24/17 Time of Encounter: 15:07 (1) Neutropenia Current Visit: Yes Status: Acute Assessment and plan: - neutropenias has resolved, ANC up to 1.7. Ok to discontinue neupogen ( received last dose today in AM). - From the oncology point of view, he can be discharged home. Qualifiers: Neutropenia type: secondary to cancer chemotherapy Qualified Code(s): D70.1 - Agranulocytosis secondary to cancer chemotherapy; T45.1X5A - Adverse effect of antineoplastic and immunosuppressive drugs, initial encounter (2) Sepsis Current Visit: Yes Status: Acute Assessment and plan: -Seems to have resolved. Antibiotic management as per primary team. 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 Oncology: Subj Interval history: Patient reports feeling ok. Denies complaints. ROS negative for CP, SOB, nausea , vomiting. - Constitutional Vitals: Vital Signs Temp Pulse Resp BP Pulse Ox 03/24/17 12:00 97.7 F 72 18 133/85 99 03/24/17 09:15 98 03/24/17 07:23 97.8 F 68 16 121/84 98 03/24/17 04:00 98.0 F 72 17 105/74 99 03/24/17 00:00 98.4 F 70 16 109/71 98 03/23/17 20:46 99 03/23/17 18:53 98.1 F 77 18 120/77 99 03/23/17 15:42 99.1 F 70 16 110/69 98 Intake and Output 03/23/17 03/24/17 03/24/17 23:59 07:59 15:59 Intake Total 1080 / 1080 1400 / 1400 480 / 480 Output Total 550 / 550 450 / 450 1325 / 1325 Balance 530 / 530 950 / 950 -845 / -845 Intake: IV Fluids 100 / 100 100 / 100 Zosyn 3.375 GM In Dextrose 5% ( 100 / 100 100 / 100 Minibag+) 100 ML 100 ML @ 25 mls/hr IVPB Q[facility]H [facility] Rx#: [id number] Oral 980 / 980 1300 / 1300 480 / 480 Output: Urostomy 550 / 550 450 / 450 1325 / 1325 Other: Meal Dinner Lunch Percent of Meal Consumed 0% 10% # Voids 2 Weight 89.2 kg Blood Glucose* 150 117 152 Patient Weight 03/24/17 23:59 Weight 89.2 kg - Head Head exam: Present: normal inspection - ENT ENT exam: Present: normal exam - Cardiovascular Cardiovascular exam: Present: RRR - GI/Abdominal GI/Abdominal exam: Present: normal bowel sounds. Absent: organomegaly Oncology: Obj Data - Labs CBC & Chem 7: 03/24/17 09:10 03/24/17 09:10 Labs: Laboratory Results - last 24 hr 03/23/17 03/23/17 03/23/17 07:10 11:24 15:46 WBC RBC Hgb Hct MCV MCH MCHC RDW Plt Count MPV Seg Neutrophils % Band Neutrophils % Lymphocytes % Monocytes % Eosinophils % Neutrophils # Lymphocytes # Monocytes # Eosinophils # Nucleated RBCs/100 WBC Platelet Estimate Polychromasia Sodium Potassium Chloride Carbon Dioxide BUN Creatinine Est GFR ( Amer) Est GFR (Non-Af Amer) BUN/Creatinine Ratio Glucose POC Glucose 117 H 144 H 122 H Calculated Osmolality Calcium 03/23/17 03/24/17 03/24/17 18:44 09:10 09:10 WBC 3.5 L D RBC 3.53 L Hgb 10.5 L Hct 31.0 L MCV 87.8 MCH 29.7 MCHC 33.9 RDW 12.7 Plt Count 227 MPV 9.0 L Seg Neutrophils % 28.0 Band Neutrophils % 20.0 H Lymphocytes % 28.0 Monocytes % 22.0 Eosinophils % 2.0 Neutrophils # 1.7 Lymphocytes # 1.0 Monocytes # 0.8 Eosinophils # 0.1 Nucleated RBCs/100 WBC 2.0 H Platelet Estimate Normal Polychromasia 1+ A Sodium 142 Potassium 3.8 Chloride 110 H Carbon Dioxide 23 BUN 6 L Creatinine 1.38 H Est GFR ( Amer) > 60 Est GFR (Non-Af Amer) 52 L BUN/Creatinine Ratio 4 L Glucose 137 H POC Glucose 150 H Calculated Osmolality 294 Calcium 8.4 L - ABG Interpretation ABG results: PT/INR, D-dimer PT 12.7 Seconds (9.4-12.1) H 03/22/17 14:17 Consult Discharge Plan - Plan Referrals: Edmund Melton DO [Primary Care Provider] - 03/28/17 11:30 am
[2017-03-24] MEDS ORDERED: levoFLOXacin 750 MG TABLET PO SCH (16:00)
[2017-03-25 05:36] LABS: Hematocrit 32.8 % (37.5-50.1); Hemoglobin 11.4 g/dL (12.9-16.9); Mean Corpuscular HGB Conc 34.8 g/dL (31.6-35.5); Mean Corpuscular Hemoglobin 30.5 pg (28.0-33.3); Mean Corpuscular Volume 87.7 fL (83.0-100.0); Platelet Count 248 K/mcL (140-400); Red Blood Count 3.74 M/mcL (4.19-5.50); Red Cell Distribution Width 12.9 % (11.5-14.5)
[2017-03-25 06:02] LABS: Eosinophils # 0.2 K/mcL (0.0-0.6); Lymphocytes # 1.2 K/mcL (0.6-4.6); Neutrophils # 4.9 K/mcL (1.6-8.9); Platelet Estimate Normal (Normal)
[2017-03-25 06:03] LABS: Large Platelets Present (Not Present); Polychromasia 1+ (Not Present)
[2017-03-25 06:56] VITALS: BP 138/89
--- NOTE | 2017-03-25 07:23 | Discharge Summary ---
<Rj Carrillo - Last Filed: 03/25/17 07:20> Date of Encounter: 03/25/17 Time of Encounter: 07:20 - Discharge Diagnosis (1) Neutropenic fever Priority: Primary Status: Acute (2) UTI (urinary tract infection) Priority: Secondary Status: Acute Qualifiers: Urinary tract infection type: site unspecified Hematuria presence: without hematuria Qualified Code(s): N39.0 - Urinary tract infection, site not specified (3) DVT prophylaxis Priority: Secondary Status: Acute (4) Hypertension Priority: Secondary Status: Chronic Qualifiers: Hypertension type: essential hypertension Qualified Code(s): I10 - Essential (primary) hypertension (5) Hyperlipidemia Priority: Secondary Status: Chronic Qualifiers: Hyperlipidemia type: mixed hyperlipidemia Qualified Code(s): E78.2 - Mixed hyperlipidemia (6) 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 Priority: Secondary Status: Acute - Discharge Medications Home Medications: Aspirin 81 mg PO DAILY 02/21/17 [History] Carvedilol [Coreg] 6.25 mg PO BIDWM 02/21/17 [History] Ferrous Sulfate [Iron] 650 mg PO BID 02/21/17 [History] Gabapentin [Neurontin] 600 mg PO BID 02/21/17 [History] Multivits,Ca,Min/Iron/FA/Lycop [Centrum Men's Tablet] 1 tab PO DAILY 02/21/17 [ History] Ondansetron [Zofran] 8 mg PO Q8HR #90 tablet 02/21/17 [Rx] Orphenadrine Citrate 100 mg PO BID PRN 02/21/17 [History] Prochlorperazine Maleate [Compazine] 10 mg PO Q8HR PRN #90 tablet 02/21/17 [Rx] Rosuvastatin [Crestor] 40 mg PO HS 02/21/17 [History] Valsartan [Diovan] 80 mg PO DAILY 02/21/17 [History] Ascorbate Calcium [Vitamin C] 500 mg PO DAILY 03/22/17 [History] Ciprofloxacin [Cipro] 500 mg PO BID #20 tablet 03/22/17 [Rx] Docusate [Colace] 100 mg PO DAILY 03/22/17 [History] Naproxen Sodium [Aleve] 220 mg PO Q12H PRN 03/22/17 [History] Allergies/Adverse Reactions: 3 Allergy/AdvReac Type Severity Reaction Status Date / Time No Known Allergies Allergy Verified 03/22/17 10:00 Date of admission: 03/22/17 16:10 Primary care physician: Edmund Melton DO Consults: Oncology Discharging clinician: Rj Carrillo Anticipated date of discharge: 03/25/17 - Patient Status Disposition: Home, Self-Care Condition: Good Functional capacity at discharge: independent ambulation Overall status at discharge: patient is progressing back to baseline - Discharge Instructions Instructions: Urinary Tract Infection in Men (DC), Sepsis (DC), Chronic Hypertension (DC), Neutropenia (DC), Neutropenia (GEN), Neutropenic Precautions (GEN), Anemia (GEN) Follow Up With: Edmund Melton DO [Primary Care Provider] - 03/28/17 11:30 am Additional Instructions: Please return to ER if you have return of fever, chills. Please follow up with PCP and oncology appointments Please finished your prescribed regimen of antibiotics as prescribed. - Diet and Activity Activity: increase activity as tolerated Diet: advance to your usual diet Interval History: Patient presented from oncology office after being found to have fever of 104. He reported chills that morning. At oncology office, urinalysis/culture, blood cultures were obtained and he was sent to ER for further evaluation. He was found to have wbc count of 1.3 and ANC of 200. Patient has hx of bladder cancer stage IV, s/p resectionof bladder, prostate and left kidney and now new metastasis to b/l lungs currently on chemotherapy. He was given neupogen while inpatient and ANC increased to 4.9. Urine cultures resulted in findings of enterococus uti. Intially patient was treated with vanc and zosyn and he was transitioned to levaquin according to culture sensitivities. Patient over the course of stay became afebrile, vials are stable, and is tolerating diet and able to ambulate without assistance and is ready for discharge Plan: Oncology prescribed patient ciprofloxacin 500mg BID x10 days. Follow up with PCP and oncology outpatient. Hospital course: Mr. Randolph is a 61 year old male - Time Spent with Patient Total time spent providing and/or coordinating discharge services: - Constitutional Vitals: Temp Pulse Resp BP Pulse Ox 98.3 F 78 12 138/89 99 03/25/17 06:54 03/25/17 06:54 03/25/17 06:54 03/25/17 06:54 03/25/17 06:54 General appearance: Present: cooperative, A&O X 3, pleasant, no acute distress, answers questions appropriately - Head Head exam: Present: atraumatic, normocephalic - Eye Eye exam: Present: PERRL, conjuntiva pink, sclera anicteric - Neck Neck exam general surgery: Present: supple, trachea midline. Absent: lymphadenopathy - Respiratory Respiratory exam: Present: CTAB. Absent: accessory muscle use, rales, rhonchi, wheezes - Cardiovascular Cardiovascular exam: Present: RRR, +S1, +S2. Absent: diastolic murmur, gallop, rubs, systolic murmur - GI/Abdominal GI/Abdominal exam: Present: normal bowel sounds, soft, no peritoneal signs. Absent: distended, tenderness - Extremities Exam Extremities exam: Present: warm, radial pulses palpable and symmetrical. Absent : calf tenderness, cyanotic, pedal edema - Neurological Exam Neurological exam: Present: CN II-XII intact, oriented X3, no focal deficits. Absent: pronater drift, facial droop, speech deficit - Skin Skin exam: Present: dry, intact - VTE Documentation of Mechanical Device: Intermittent pneumatic compression device <Jalen Anguiano - Last Filed: 03/25/17 08:58> Date of Encounter: 03/25/17 - Discharge Diagnosis (1) Neutropenia Priority: Primary Status: Acute Qualifiers: Neutropenia type: secondary to cancer chemotherapy Qualified Code(s): D70.1 - Agranulocytosis secondary to cancer chemotherapy; T45.1X5A - Adverse effect of antineoplastic and immunosuppressive drugs, initial encounter (2) UTI (urinary tract infection) Status: Acute Qualifiers: Urinary tract infection type: site unspecified Hematuria presence: without hematuria Qualified Code(s): N39.0 - Urinary tract infection, site not specified (3) Hypertension Status: Chronic Qualifiers: Hypertension type: essential hypertension Qualified Code(s): I10 - Essential (primary) hypertension (4) Hyperlipidemia Status: Chronic Qualifiers: Hyperlipidemia type: mixed hyperlipidemia Qualified Code(s): E78.2 - Mixed hyperlipidemia (5) 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 Status: Acute Date of admission: 03/22/17 16:10 Primary care physician: Edmund Melton DO Hospital course: Mr. Randolph is a 61 year old male - Time Spent with Patient Total time spent providing and/or coordinating discharge services: 32min - Constitutional Vitals: Temp Pulse Resp BP Pulse Ox 98.3 F 78 12 138/89 99 03/25/17 06:54 03/25/17 06:54 03/25/17 06:54 03/25/17 06:54 03/25/17 07:59 - Attending Attestation I examined this patient and my medical decision-making was reviewed with the Resident Physician on 03/25/17. I agree with the documented findings, disposition and treatment plan as described except to the extent set forth below. Mr. Randolph has been admitted for neutropenic fever. He was found to have UTI. He is now afebrile with stable vitals. His ANC is over 4900. He is ready for discharge home. Exam Alert. Comfortable Mucus membranes moist Heart reg No wheeze Abd soft plan D/C home today on PO abx Follow up with PCP and onc.
[2017-03-25] MEDS: Aspirin 81 MG TAB.CHEW PO SCH (08:07)
[2017-03-25] MEDS: Valsartan 80 MG TABLET PO SCH (08:07)
[2017-03-25] MEDS: Ascorbic Acid 500 MG TABLET PO SCH (08:07)
[2017-03-25] MEDS: Multivit/Ca/Min/Fe/FA 1 TAB TABLET PO SCH (08:07)
[2017-03-25] MEDS: Famotidine 20 MG/2 ML VIAL IVP SCH (08:07)
[2017-03-25] MEDS ORDERED: Aminoglycoside Consult 1 EACH MC ONE (10:42)
== END 2017-03-25 10:43 | disposition home or self-care (01) | DRG 872 ==
LOC: EMEROO 13:52 → 2NENU 13:52
PROVIDERS: ADMIT Family Medicine; ATTEND Internal Medicine

== ENCOUNTER 2018-02-20 22:50 | Inpatient (IN) ==
--- NOTE | 2018-02-21 02:09 | Internal Med History&Physical ---
Date of Encounter: 02/21/18 Time of Encounter: 02:06 Internal Medicine - H&P: HPI Chief complaint: falls Admitted From: Hospital to Hospital Transfer Plans for Post Hospital Care: Home History of present illness: Mr. Randolph is a 62 year old male presented to [place] emergency department for chief complaint of falls. Patient reports bilateral lower extremity weakness that has worsened in the past week. Normally he is ambulatory with a walker, however in the past which he has fallen 6 times. He denies lightheadedness, vertigo, imbalance. Patient has a history of metastatic urothelial stage IV cancer with lung metastasis on chemotherapy with last treatment 2 weeks ago. Patient reports he has been unable to keep up with this chemotherapy secondary to weakness. He is status post cystectomy, prostatectomy, and left nephrectomy with right urostomy at [facility] secondary to his bladder cancer. He denies any trauma to head, or other areas. He denies fevers, chills headache, blurry vision, changes in hearing, difficulty swallowing, painful swallowing, neck pain , chest pain, shortness of breath, abdominal pain, nausea, vomiting, diarrhea, melena, hematochezia, hemoptysis, hematemesis changes in urine color, odor, changes in urine production, lower extremity edema, numbness, tingling. Patient reports weight loss but does not know how much. He also reports bloody intermittent penile discharge for the last month and a half. At [place] emergency department he was found to have anemia with a hemoglobin of 7.2, where normally is around 10. Also he had elevated serum creatinine 1.68. Urine from urostomy bag was positive for leukocyte esterase, cloudy. His temperature was elevated 100.6 and is tachycardic. Patient's stool occult blood was positive as well. Patient was also hypotensive at [place] emergency department and was given 3.5 L of normal saline. He was also given 1 dose of Zosyn. Past Med Surg Social Fam HX - Past Medical History Medical history: cancer, diabetes, hyperlipidemia, hypertension, liver disease, other Additional medical history: Prostate, bladder, kidney, lung cancer onset 2012 Psychiatric history: no psych history - Past Surgical History Surgical History: other Additional surgical history: bladder and prostate removed, kidney removed, urostomy - Social History Smoking Status: Never smoker Smokeless Tobacco Status: No Alcohol use: none Drug use: none - Family History Mother Living Status: Cause of : [place] Hx Family Cardiac Disorders: Yes Father Living Status: Hx Family Cancer: Yes (liver) Internal Medicine - H&P: Meds Aspirin 81 mg PO DAILY 02/21/17 [History] Carvedilol [Coreg] 6.25 mg PO BID 02/21/17 [History] Ferrous Sulfate [Iron] 65 mg PO QID 02/21/17 [History] Gabapentin [Neurontin] 600 mg PO BID 02/21/17 [History] Multivits,Ca,Min/Iron/FA/Lycop [Centrum Men's Tablet] 1 tab PO DAILY 02/21/17 [ History] Ondansetron [Zofran] 8 mg PO Q8HR #90 tablet 02/21/17 [Rx] Orphenadrine Citrate 100 mg PO BID 02/21/17 [History] Rosuvastatin [Crestor] 40 mg PO HS 02/21/17 [History] Valsartan [Diovan] 80 mg PO DAILY 02/21/17 [History] Ascorbate Calcium [Vitamin C] 500 mg PO DAILY 03/22/17 [History] Docusate [Colace] 100 mg PO DAILY 03/22/17 [History] Naproxen Sodium [Aleve] 220 mg PO Q12H PRN 03/22/17 [History] Folic Acid 1 mg PO DAILY #30 12/19/17 [Rx] OxyCODONE Immed Rel [Roxicodone 10 MG] 10 mg PO TID 01/10/18 [History] 3 Allergy/AdvReac Type Severity Reaction Status Date / Time No Known Allergies Allergy Verified 11/07/17 08:53 All Systems PM: A 10-system review of systems was performed and is negative for pertinent findings except as documented above in the HPI. Review of systems: Constitutional: Denies fever, chills. Reports weakness. Reports weight loss HEENT: Denies headache, vision changes, neck pain, sore throat, rhinorrhea Heart: Denies chest pain palpitations Lungs: Denies shortness of breath cough Abdomen: Denies abdominal pain nausea vomiting diarrhea Back: Denies back pain Kidney: Denies dysuria, hematuria. : Reports bloody penile discharge Skin: Denies rash, lesions Extremities: Denies swelling, pain Neuro: Denies numbness and tingling - Constitutional Vitals: Temp Pulse Resp BP Pulse Ox 98.8 F 98 17 104/67 92 02/21/18 01:35 02/21/18 01:35 02/21/18 01:35 02/21/18 01:35 02/21/18 01:35 Exam: General: Pleasant without distress HEENT: Head atraumatic, normocephalic, EOMI, PERRL, neck nontender to palpation , absent lymphadenopathy, Moist Mucous Membranes, Heart: Regular rate and rhythm with no murmur Lungs: Clear to auscultation bilaterally Abdomen: Soft nontender, nondistended positive bowel sounds Skin: warm and dry, absent rash Extremities: Absent pedal edema, : Bloody penile discharge Neuro: Cranial nerves II through XII intact, UE and LE sensation equal bilaterally, UE and LEstrength 5/5, alert oriented 3, Vascular: Pedal and radial pulses 2 out of 4 - Assessment and plan (1) Severe sepsis Current Visit: Yes Status: Acute Assessment and plan: 59-year-old male presents with chief complaint of falls is found to have fever, tachycardia and hypotension in setting of duc Urinalysis is indicative of UTI Lactic acid 2.2 and 0.9 respectively He has received 3.5 L of normal saline Given Zosyn in the emergency department and blood cultures and urine cultures have been sent Patient has a history of enterococcus and Enterobacter UTI to fluoroquinolones Patient has a history of urothelial carcinoma stage IV and is status post cystectomy, prostatectomy, and right nephrectomy. Plan: We will start patient on Levaquin IV and await blood cultures/urine cultures for sensitivities. Repeat CBC and BMP in the morning. Will avoid restarting BP medication due to hypotension. (2) Acute GI bleeding Current Visit: Yes Status: Acute Assessment and plan: Patient also seen to have a decrease in his hemoglobin. Baseline hemoglobin is 10-11. He presented hemoglobin 7.2 Patient denies melena, hematochezia, hemoptysis, hematemesis He reports bloody penile discharge Fecal occult blood test positive Also was hypotensive on presentation to ED but currently blood pressure stable after IV fluids. CT abdomen pelvis showed no acute abdominopelvic abnormality or signs of bleeding. Plan: Patient has right IV port. Start additional peripheral IV. PPI twice a day. Stat H&H, type and screen. Consult GI. Nothing by mouth. stop home aspirin. (3) DVT prophylaxis Current Visit: Yes Status: Acute Assessment and plan: EPC D (4) Metastatic urothelial carcinoma Current Visit: Yes Status: Chronic Assessment and plan: Patient has metastatic urothelial carcinoma to lung Currently in chemotherapy is followed by Dr. Carlson outpatient CT abdomen pelvis on admission showed mild progression of liver metastasis, no significant change in cavitary pulmonary metastasis in the lung bases as well as osseous metastasis (5) Anemia Current Visit: Yes Status: Acute Assessment and plan: Patient's anemia is on combination of iron deficiency, anemia of chronic disease and acute GI bleed We will check stat H&H if hemoglobin less than 7 we will transfuse Continue iron supplementation Qualifiers: Anemia type: iron deficiency Iron deficiency anemia type: other iron deficiency Qualified Code(s): D50.8 - Other iron deficiency anemias (6) DUC (acute kidney injury) Current Visit: Yes Status: Acute Assessment and plan: Acute on chronic kidney injury, CKD3 Presented with serum creatinine of 1.68. Secondary to anemia, sepsis, UTI Status post IV fluids Repeat renal function studies Avoid nephrotoxic agents (7) UTI (urinary tract infection) Current Visit: Yes Status: Acute Assessment and plan: Patient's urinalysis was positive for leukocyte esterase, with many urine bacteria, small amounts of blood. Urine culture sent Patient started on Levaquin. Qualifiers: Urinary tract infection type: acute cystitis Hematuria presence: without hematuria Qualified Code(s): N30.00 - Acute cystitis without hematuria (8) Repeated falls Current Visit: Yes Status: Acute Assessment and plan: Likely secondary to combination of developing anemia, physical deconditioning, weight loss from metastatic cancer We will get PT OT consult - Time Spent With Patient Total time spent is greater than 50% in coordination of care (as documented) at patient's floor/unit and/or counseling patient:
[2018-02-21] MEDS: Pantoprazole 40 MG VIAL IVP SCH ×2 (02:46→15:51)
[2018-02-21 02:54] LABS: Eosinophils # 0.1 K/mcL (0.0-0.6); Eosinophils % 0.6 %; Hematocrit 19.8 % (37.5-50.1); Hemoglobin 6.2 g/dL (12.9-16.9); Lymphocytes # 0.9 K/mcL (0.6-4.6); Lymphocytes % 11.4 %; Mean Corpuscular HGB Conc 31.3 g/dL (31.6-35.5); Mean Corpuscular Hemoglobin 29.8 pg (28.0-33.3); Mean Corpuscular Volume 95.2 fL (83.0-100.0); Mean Platelet Volume 9.7 fL (9.4-12.4); Monocytes # 1.1 K/mcL (0.0-1.3); Monocytes % 14.1 %; Neutrophils # 5.8 K/mcL (1.6-8.9); Platelet Count 158 K/mcL (140-400); Red Blood Count 2.08 M/mcL (4.19-5.50); Red Cell Distribution Width 20.5 % (11.5-14.5); Segmented Neutrophils % 72.9 %
[2018-02-21 03:11] LABS: Alanine Aminotransferase 60 Units/L (7-52); Albumin 2.4 g/dL (3.5-5.7); Albumin/Globulin Ratio 0.8 (1.1-2.2); Alkaline Phosphatase 763 Units/L (34-104); Aspartate Amino Transferase 100 Units/L (13-39); BUN/Creatinine Ratio 15 (6-26); Bilirubin,Total 0.8 mg/dL (0.3-1.0); Blood Urea Nitrogen 20 mg/dL (8-23); Calcium 7.7 mg/dL (8.6-10.3); Carbon Dioxide 22 mEq/L (23-29); Chloride 107 mEq/L (98-107); Globulin 3.1 g/dL (2.4-3.5); Glucose 127 mg/dL (70-105); Osmolality,Calculated 294 (280-300); Potassium 4.3 mEq/L (3.5-5.1); Sodium 140 mEq/L (136-145); Total Protein 5.5 g/dL (6.4-8.9); eGFR For Non-African Americans 53 (> 60)
[2018-02-21] MEDS ORDERED: 0.9 % Sodium Chloride 250 ML ONE (04:19)
[2018-02-21] MEDS: Levofloxacin 750 MG/150 ML 750 MG/150 ML BAG IVPB SCH (07:53)
[2018-02-21] MEDS ORDERED: FERROUS SULFATE 65MG PO SCH (09:00)
[2018-02-21] MEDS: 0.9 % Sodium Chloride 1,000 ML IVC SCH ×2 (10:20→20:30)
--- NOTE | 2018-02-21 12:59 | Gastroenterology Consult Note ---
<Lenny Means Jerry - Last Filed: 02/21/18 12:56> Date of Encounter: 02/21/18 Time of Encounter: 10:50 - Assessment and plan (1) Anemia Current Visit: Yes Status: Acute Assessment and plan: At [facility] ED Hgb was 7.2 and on arrival here Hgb 6.2. Hgb on 01/23 was 10. Continue to monitor CBC and transfuse PRBC as needed. Fecal occult blood test was positive. Plan for EGD and colonoscopy tomorrow. Clear liquid diet today, no red or purple. NPO at midnight. If unable tolerate NuLytely please use MiraLAX prep. If not clear by 6 AM, give 2 tap water enemas. Qualifiers: Anemia type: iron deficiency Iron deficiency anemia type: other iron deficiency Qualified Code(s): D50.8 - Other iron deficiency anemias (2) GI bleed Current Visit: No Status: Acute Assessment and plan: Continue PPI and plan for EGD and colonoscopy tomorrow. Qualifiers: GI bleed type/associated pathology: unspecified gastrointestinal hemorrhage type Qualified Code(s): K92.2 - Gastrointestinal hemorrhage, unspecified - Time Spent With Patient Total time spent is greater than 50% in coordination of care (as documented) at patient's floor/unit and/or counseling patient: GI History of Present Illness - Data of Consult Patient: new to practice Consult date: 02/21/18 Requesting Physician: Jerry Rocha MD - Consult Narrative Reason for consult: GI bleed History of present illness: Mr. Randolph is a 62 year old male with PMHx of metastatic urothelial stage IV cancer with lung metastasis on chemotherapy with last treatment 2 weeks ago, DM , HLD, HTN, and liver disease who presented to [facility] ED for chief complaint of falls. He denied fever, chills, chest pain, shortness of breath, abdominal pain , nausea, vomiting, diarrhea, melena, hematochezia, hemoptysis, hematemesis. At [facility] ED Hgb was 7.2 and on arrival here Hgb 6.2. Hgb on 01/23 was 10. Fecal occult blood test was positive. CT A/P showed questionable mild progression of liver metastases, but no signs of bleeding. Procedure: Colonoscopy 04/08/2015 Dr. Cassidy: 5mm rectal and 3mm ascending colon tubular adenomas. NSAIDs: Aleve, ASA Anticoagulation: None Past Med Surg Social Fam HX - Past Medical History Medical history: cancer, diabetes, hyperlipidemia, hypertension, liver disease, other Additional medical history: Prostate, bladder, kidney, lung cancer onset 2012 Psychiatric history: no psych history - Past Surgical History Surgical History: other Additional surgical history: bladder and prostate removed, kidney removed, urostomy - Social History Smoking Status: Never smoker Smokeless Tobacco Status: No Alcohol use: none Drug use: none - Family History Mother Living Status: Cause of : [place] Hx Family Cardiac Disorders: Yes Father Living Status: Hx Family Cancer: Yes (liver) - Gastrointestinal Gastrointestinal: Present: as per HPI - Constitutional Constitutional: as per HPI - EENT Eyes: as per HPI Ears: Present: as per HPI Nose, mouth and throat: Present: as per HPI - Cardiovascular Cardiovascular ROS: Present: as per HPI - Respiratory Respiratory IM: Present: as per HPI - Genitourinary Genitourinary: Absent: change in color, Urinary frequency - Neurological ROS Neurological GI: Present: as per HPI - Hematologic/Lymphatic Hematologic/Lymphatic pediatric: Present: as per HPI - Musculoskeletal Musculoskeletal ROS GI: Present: as per HPI - Integumentary Integumentary GI: Present: as per HPI - Psychiatric ROS Psychiatric GI: Present: as per HPI - Endocrine Endocrine IM: Present: as per HPI - Constitutional Vitals: Temp Pulse Resp BP Pulse Ox 99.2 F 68 16 120/86 100 02/21/18 11:33 02/21/18 11:33 02/21/18 11:33 02/21/18 11:33 02/21/18 11:33 General appearance: Present: cooperative, A&O X 3, no acute distress, answers questions appropriately - Head Head exam: Present: atraumatic, normocephalic - Eye Eye exam: Present: normal appearance, sclera anicteric - ENT ENT exam: Present: mucous membranes dry - Neck Neck exam general surgery: Present: normal inspection, trachea midline - Respiratory Respiratory exam: Present: decreased breath sounds, CTAB. Absent: rales, rhonchi, wheezes - Cardiovascular Cardiovascular exam: Present: RRR, +S1, +S2 - GI/Abdominal GI/Abdominal exam: Present: soft, no peritoneal signs. Absent: distended, firm , guarding, tenderness - Rectal Rectal exam: Present: deferred - Extremities Exam Extremities exam: Present: warm - Neurological Exam Neurological exam: Present: no focal deficits - Psychiatric Psychiatric exam: Present: normal affect, normal mood - Skin Skin exam: Present: dry, intact, normal color, warm Results - Labs CBC & Chem 7: 02/21/18 01:39 02/21/18 01:39 Labs: Last Result Calcium 7.7 mg/dL (8.6-10.3) L 02/21/18 01:39 Entire Visit Hgb 6.2 g/dL (12.9-16.9) L 02/21/18 01:39 Hct 19.8 % (37.5-50.1) L 02/21/18 01:39 Total Bilirubin 0.8 mg/dL (0.3-1.0) 02/21/18 01:39 AST 100 Units/L (13-39) H 02/21/18 01:39 ALT 60 Units/L (7-52) H 02/21/18 01:39 Consult Discharge Plan - Plan Referrals: Edmund Melton DO [Primary Care Provider] - 02/28/18 11:30 am Justina Bejarano MD [Partnered Physician] - (SENT WEB REQUEST ON 02-21-18 @1112) <Justina Bejarano - Last Filed: 02/21/18 18:30> Date of Encounter: 02/21/18 Time of Encounter: 17:45 - Time Spent With Patient Total time spent is greater than 50% in coordination of care (as documented) at patient's floor/unit and/or counseling patient: GI History of Present Illness - Data of Consult Requesting Physician: Jerry Rocha MD - Consult Narrative History of present illness: Mr. Randolph is a 62 year old male - Constitutional Vitals: Temp Pulse Resp BP Pulse Ox 99.2 F 68 16 120/86 100 02/21/18 15:45 02/21/18 15:45 02/21/18 15:45 02/21/18 15:45 02/21/18 15:45 Results - Labs CBC & Chem 7: 02/21/18 15:25 02/21/18 01:39 Labs: Last Result Calcium 7.7 mg/dL (8.6-10.3) L 02/21/18 01:39 Entire Visit Hgb 8.3 g/dL (12.9-16.9) L D 02/21/18 15:25 Hct 25.8 % (37.5-50.1) L 02/21/18 15:25 Total Bilirubin 0.8 mg/dL (0.3-1.0) 02/21/18 01:39 AST 100 Units/L (13-39) H 02/21/18 01:39 ALT 60 Units/L (7-52) H 02/21/18 01:39 - Attending Attestation I have personally performed a face to face evaluation on this patient. I have reviewed and agree with the care plan. History and Exam by me shows: Pt is seen the bedside. Denies any abdominal pain denies any overt GI bleeding. Examination: abdomen is benign does has urostomy tube in place. Assessment: Patient with metastatic urothelial stage IV cancer with lung metastasis on chemotherapy with last treatment 2 weeks ago now with severe anemia. No overt GI bleeding. Recommendation: EGD colonoscopy to rule out GI causes for his anemia
[2018-02-21] MEDS ORDERED: Naloxone 0.4 MG/ML INJ IVP PRN (13:48)
[2018-02-21] MEDS ORDERED: *HR* OxyCODONE Immed Rel 5 MG TABLET PO PRN (13:48)
--- NOTE | 2018-02-21 14:58 | Internal Med Progress Note ---
Hospitalist Progress Note - Encounter Date of Encounter: 02/21/18 Time of Encounter: 10:40 - Subjective Interval History: H&P reviewed. 62-year-old male with history of metastatic urothelial cancer with lung and liver metastases last chemotherapy completed 2 weeks ago is admitted for fever, tachycardia, hypotension and drop in hemoglobin. Currently being managed for sepsis secondary to UTI and GI bleed. States that he feels about the same yesterday, denies melena, hematochezia, and BRBRPR. No abdominal pain, N/V, hematemesis. His main complaint was dizziness upon standing. - Exam Vitals: Temp Pulse Resp BP Pulse Ox 99.2 F 68 16 120/86 100 02/21/18 11:33 02/21/18 11:33 02/21/18 11:33 02/21/18 11:33 02/21/18 11:33 Exam: General: Alert and oriented, not in acute distress. Cardiovascular:Normal S1 & S2, No JVD. Pulse regular. Lungs: clear to auscultation, no wheezes/rales Abdomen:Soft, non-tender, no rigidity. Neurological:Normal cognition and motor skills. Non-focal - Assessment and Plan (1) Severe sepsis Current Visit: Yes Status: Acute Assessment and Plan: Presented with fever, tachycardia, and hypotension. 3/4 SIRS criteria Urinalysis positive for leukocyte esterase Associated with DUC, Cr 1.68 (Baseline around 1) Lactic acid 2.2, s/p 3.5L of NS for hypotension Patient has a history of enterococcus and Enterobacter sensitive to levaquin continue D2 IV levaquin, pending blood/urine cultures (2) Acute GI bleeding Current Visit: Yes Status: Acute Assessment and Plan: Patient also seen to have a decrease in his hemoglobin. Baseline hemoglobin is 10-11 -> 7.2 -> 6.2 today Patient denies melena, hematochezia, hemoptysis, hematemesis FOBT +ve Also was hypotensive on presentation to ED but currently blood pressure stable after IV fluids. CT abdomen pelvis showed no acute abdominopelvic abnormality or signs of bleeding. transfuse 2U pRBC, PPI BID GI input appreciated -> EGD, colonoscopy tomorrow (3) UTI (urinary tract infection) Current Visit: Yes Status: Acute Assessment and Plan: as above (4) DUC (acute kidney injury) Current Visit: Yes Status: Acute Assessment and Plan: likely ATN from sepsis or pre-renal from hypovolemia in the setting of GI bleed to anemia, sepsis, UTI improving with IVF, continune Avoid nephrotoxic agents (5) Metastatic urothelial carcinoma Current Visit: Yes Status: Chronic Assessment and Plan: Patient has metastatic urothelial carcinoma to lung and liver, CT demonstrating questionable mild progression of liver mets deranged LFT likely secondary to liver metastases Follow-up with oncology as outpatient (6) Repeated falls Current Visit: Yes Status: Acute Assessment and Plan: Likely secondary to orthostatic hypotension in the setting of sepsis and GI bleed management as above We will get PT OT consult (7) Hypertension Current Visit: No Status: Chronic Assessment and Plan: hold off on home meds in view of borderline blood pressure (8) DVT prophylaxis Current Visit: Yes Status: Acute Assessment and Plan: SCD - Time Spent with Patient Total time spent is greater than 50% in coordination of care (as documented) at patient's floor/unit and/or counseling patient: Plan of Care Discussed with: nurse Internal Medicine: Result - Labs CBC & Chem 7: 02/21/18 01:39 02/21/18 01:39 Labs: Short CBC 02/21/18 Range/Units 01:39 WBC 8.0 (4.3-11.1) K/mcL Hgb 6.2 L (12.9-16.9) g/dL Hct 19.8 L (37.5-50.1) % Plt Count 158 (140-400) K/mcL Neutrophils # 5.8 (1.6-8.9) K/mcL BMP 02/21/18 01:39 Sodium 140 Potassium 4.3 Chloride 107 Carbon Dioxide 22 L BUN 20 Creatinine 1.35 H Glucose 127 H Calcium 7.7 L Liver Function 02/21/18 Range/Units 01:39 Total Bilirubin 0.8 (0.3-1.0) mg/dL AST 100 H (13-39) Units/L ALT 60 H (7-52) Units/L Alkaline Phosphatase 763 H (34-104) Units/L Albumin 2.4 L (3.5-5.7) g/dL - VTE Documentation of Mechanical Device: Intermittent pneumatic compression device Consult Discharge Plan - Plan Referrals: Edmund Melton DO [Primary Care Provider] - 02/28/18 11:30 am Justina Bejarano MD [Partnered Physician] - (SENT WEB REQUEST ON 02-21-18 @1112) (3) UTI (urinary tract infection) Qualifiers: Urinary tract infection type: acute cystitis Hematuria presence: without hematuria Qualified Code(s): N30.00 - Acute cystitis without hematuria (7) Hypertension Qualifiers: Hypertension type: essential hypertension Qualified Code(s): I10 - Essential (primary) hypertension
[2018-02-21] MEDS: traMADol 50 MG TABLET PO PRN (15:48)
[2018-02-21 15:49] LABS: Hematocrit 25.8 % (37.5-50.1); Hemoglobin 8.3 g/dL (12.9-16.9)
[2018-02-21] MEDS ORDERED: SODIUM CHLORIDE/NAHCO3/KCL/PEG 4,000 ML SOLN.RECON PO ONE (17:00)
[2018-02-22 03:35] LABS: % Iron Saturation 9 % (20-55); BUN/Creatinine Ratio 13 (6-26); Blood Urea Nitrogen 11 mg/dL (8-23); Calcium 8.2 mg/dL (8.6-10.3); Carbon Dioxide 21 mEq/L (23-29); Chloride 108 mEq/L (98-107); Glucose 121 mg/dL (70-105); Iron 21 mcg/dL (65-175); Osmolality,Calculated 283 (280-300); Potassium 3.6 mEq/L (3.5-5.1); Sodium 136 mEq/L (136-145); Transferrin 168 mg/dL (203-362); eGFR For Non-African Americans > 60 (> 60)
[2018-02-22 03:53] LABS: Ferritin 1075 ng/mL (20-250)
[2018-02-22 04:50] LABS: Basophils % 0.1 %; Eosinophils % 0.3 %; Hematocrit 27.1 % (37.5-50.1); Hemoglobin 8.7 g/dL (12.9-16.9); Immature Granulocytes % 0.8 % (0-4); Lymphocytes # 0.8 K/mcL (0.6-4.6); Lymphocytes % 7.3 %; Mean Corpuscular HGB Conc 32.1 g/dL (31.6-35.5); Mean Corpuscular Hemoglobin 28.7 pg (28.0-33.3); Mean Corpuscular Volume 89.4 fL (83.0-100.0); Mean Platelet Volume 9.3 fL (9.4-12.4); Monocytes # 1.1 K/mcL (0.0-1.3); Monocytes % 10.2 %; Neutrophils # 8.7 K/mcL (1.6-8.9); Platelet Count 168 K/mcL (140-400); Red Blood Count 3.03 M/mcL (4.19-5.50); Red Cell Distribution Width 20.9 % (11.5-14.5); Segmented Neutrophils % 81.3 %
[2018-02-22] MEDS: Pantoprazole 40 MG VIAL IVP SCH ×2 (05:54→18:04)
[2018-02-22] MEDS: Levofloxacin 750 MG/150 ML 750 MG/150 ML BAG IVPB SCH (08:29)
--- NOTE | 2018-02-22 11:55 | Anesthesia Evaluation PreOp ---
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 HX Other Medical History: Renal (CA RENAL, UROSTOMY, UTI), Bleeding (8.7ACUTE ANEMIA, HB 6.2, 2 PRBC, LAST HB 8.7), Diabetes Type II, Other (SEVERE SEPSIS, REPEATED FALLS) Alcohol Use: none Drug use: none Medications and Allergies Aspirin 81 mg PO DAILY 02/21/17 [History] Carvedilol [Coreg] 6.25 mg PO BID 02/21/17 [History] Ferrous Sulfate [Iron] 325 mg PO TID 02/21/17 [History] Gabapentin [Neurontin] 600 mg PO BID 02/21/17 [History] Multivits,Ca,Min/Iron/FA/Lycop [Centrum Men's Tablet] 1 tab PO DAILY 02/21/17 [ History] Orphenadrine Citrate 100 mg PO BID 02/21/17 [History] Rosuvastatin [Crestor] 40 mg PO HS 02/21/17 [History] Valsartan [Diovan] 80 mg PO DAILY 02/21/17 [History] Ascorbate Calcium [Vitamin C] 500 mg PO DAILY 03/22/17 [History] Docusate [Colace] 100 mg PO DAILY 03/22/17 [History] Folic Acid 1 mg PO DAILY #30 12/19/17 [Rx] OxyCODONE Immed Rel [Roxicodone 10 MG] 10 mg PO TID PRN 01/10/18 [History] Methyl Salicylate/Menthol [Salonpas Patch] 1 each TP DAILY PRN 02/21/18 [History ] 3 Allergy/AdvReac Type Severity Reaction Status Date / Time No Known Allergies Allergy Verified 02/21/18 09:00 - Meds/Allergy Pre-op Review Medications Reviewed: Yes Allergies Reviewed: Yes Beta Blockers on Current Med List: Yes Anesthesia Results - Labs 02/22/18 03:21 02/22/18 03:02 - Imaging Additional studies: Active Medications Levofloxacin/Dextrose (Levaquin Premix 750mg/150 Ml) 750 mg in 150 mls @ 100 mls/hr IVPB DAILY CHRISTINA PRN Reason: Protocol Stop: 02/28/19 09:01 Oxycodone HCl (Roxicodone) 10 mg PO Q6HR PRN PRN Reason: Severe Pain Stop: 08/23/18 13:49 Last Admin: 02/22/18 02:09 Dose: 10 mg Pantoprazole Sodium (Protonix) 40 mg IVP Q12HR CHRISTINA Stop: 08/23/18 01:41 Last Admin: 02/22/18 05:54 Dose: 40 mg Tramadol HCl (Ultram) 50 mg PO Q6HR PRN PRN Reason: Moderate Pain Stop: 08/23/18 13:49 Last Admin: 02/21/18 15:48 Dose: 50 mg Anesthesia Exam Vital Signs/O2 Sat/Glucose, Most Recent Temp Pulse Resp BP Pulse Ox 99.6 F 96 18 127/89 99 02/22/18 10:43 02/22/18 10:43 02/22/18 10:43 02/22/18 10:43 02/22/18 10:43 Blood Glucose* 112 Weight: 80 KG NPO (# of Hours): 8 - HEENT Mallampati: I Teeth: Normal Oral Opening: Greater than 3 - Cardiac Rhythm: Regular - Pulmonary Breath Sounds: bilateral Clear Respiratory Effort: Symmetrical Anesthesia Assess/Plan ASA Score: 4 Modified Shraddha Scale for Level of Consciousness: Cooperative, oriented, and tranquil Anesthetic Plan: MAC Monitoring Plan: Standard Monitors Recovery Plan: Other
--- NOTE | 2018-02-22 12:27 | Internal Med Progress Note ---
Hospitalist Progress Note - Encounter Date of Encounter: 02/22/18 Time of Encounter: 09:10 - Subjective Interval History: States that he feels much better than yesterday, denies any melena, hematochezia , and BRBPR overnight. No fever/chills - Exam Vitals: Temp Pulse Resp BP Pulse Ox 99.6 F 96 18 127/89 99 02/22/18 10:43 02/22/18 10:43 02/22/18 10:43 02/22/18 10:43 02/22/18 10:43 Exam: General: Alert and oriented, not in acute distress. Cardiovascular:Normal S1 & S2, No JVD. Pulse regular. Lungs: clear to auscultation, no wheezes/rales Abdomen:Soft, non-tender, no rigidity. Neurological:Normal cognition and motor skills. Non-focal - Assessment and Plan (1) Severe sepsis Current Visit: Yes Status: Acute Assessment and Plan: Presented with fever, tachycardia, and hypotension. 3/4 SIRS criteria Urinalysis positive for leukocyte esterase Lactic acid 2.2, s/p 3.5L of NS for hypotension Associated with DUC, Cr 1.68 (Baseline around 1) -> normalized with IVF Patient has a history of enterococcus and Enterobacter sensitive to levaquin continue D3 IV levaquin, urine culture +ve GNR pending blood cultures (2) Acute GI bleeding Current Visit: Yes Status: Acute Assessment and Plan: Patient also seen to have a decrease in his hemoglobin. Baseline hemoglobin is 10-11 -> 7.2 -> 6.2 on presentation s/p 2U pRBC, Hb 8.7 today Patient denies melena, hematochezia, hemoptysis, hematemesis but FOBT +ve hemodynamically stable, CT abdomen pelvis showed no acute abdominopelvic abnormality or signs of bleeding. Continue PPI BID, for EGD/colonoscopy today (3) UTI (urinary tract infection) Current Visit: Yes Status: Acute Assessment and Plan: as above (4) DUC (acute kidney injury) Current Visit: Yes Status: Inactive Assessment and Plan: likely ATN from sepsis or pre-renal from hypovolemia in the setting of GI bleed to anemia, sepsis, UTI Resolved with IVF, resume diet post-procedure today Avoid nephrotoxic agents (5) Metastatic urothelial carcinoma Current Visit: Yes Status: Chronic Assessment and Plan: Patient has metastatic urothelial carcinoma to lung and liver, CT demonstrating questionable mild progression of liver mets deranged LFT likely secondary to liver metastases Follow-up with oncology as outpatient (6) Repeated falls Current Visit: Yes Status: Acute Assessment and Plan: Likely secondary to orthostatis in the setting of sepsis and GI bleed management as above recommend SNF placement, work with CM (7) Hypertension Current Visit: No Status: Chronic Assessment and Plan: hold off on home meds (8) DVT prophylaxis Current Visit: Yes Status: Acute Assessment and Plan: SCD - Time Spent with Patient Total time spent is greater than 50% in coordination of care (as documented) at patient's floor/unit and/or counseling patient: Plan of Care Discussed with: patient Internal Medicine: Result - Labs CBC & Chem 7: 02/22/18 03:21 02/22/18 03:02 Labs: Short CBC 02/21/18 02/22/18 Range/Units 15:25 03:21 WBC 10.7 (4.3-11.1) K/mcL Hgb 8.3 L D 8.7 L (12.9-16.9) g/dL Hct 25.8 L 27.1 L (37.5-50.1) % Plt Count 168 (140-400) K/mcL Neutrophils # 8.7 (1.6-8.9) K/mcL BMP 02/22/18 03:02 Sodium 136 Potassium 3.6 Chloride 108 H Carbon Dioxide 21 L BUN 11 Creatinine 0.88 Glucose 121 H Calcium 8.2 L - VTE Documentation of Mechanical Device: Intermittent pneumatic compression device Consult Discharge Plan - Plan Referrals: Edmund Melton DO [Primary Care Provider] - 02/28/18 11:30 am Justina Bejarano MD [Partnered Physician] - (SENT WEB REQUEST ON 02-21-18 @9822) (3) UTI (urinary tract infection) Qualifiers: Urinary tract infection type: acute cystitis Hematuria presence: without hematuria Qualified Code(s): N30.00 - Acute cystitis without hematuria (7) Hypertension Qualifiers: Hypertension type: essential hypertension Qualified Code(s): I10 - Essential (primary) hypertension
[2018-02-22] MEDS ORDERED: Propofol 500 MG/50 ML INFUS..BTL ONE (13:14)
[2018-02-22] MEDS: 0.9 % Sodium Chloride 1,000 ML IVC SCH (14:12)
--- NOTE | 2018-02-22 15:25 | Anesthesia Evaluation Post Op ---
Date of Encounter: 02/22/18 Time of Encounter: 14:50 - Vital Signs Vital Signs: 3 Vital Signs Time 1450 BP 111/63 Pulse 70 Resp 24 O2 Sat 99 - Lungs Lungs: Clear Ascult./Percussion - Airway Airway: Non-obstructed - Cardiovascular Regular Rate - Mental Status Mental Status: Alert & Oriented, Answers Appropriately - Nausea Vomiting Nausea Vomiting: Not Present - Hydration Hydration: NPO - Discharge PostOp Status: Transfer Patient to floor
[2018-02-22] MEDS: traMADol 50 MG TABLET PO PRN (15:55)
[2018-02-22] MEDS: Orphenadrine 100 MG TABLET.ER PO SCH (20:28)
[2018-02-22] MEDS: Gabapentin 300 MG CAPSULE PO SCH (20:28)
[2018-02-23] MEDS: Pantoprazole 40 MG VIAL IVP SCH (05:04)
[2018-02-23] MEDS: Levofloxacin 750 MG/150 ML 750 MG/150 ML BAG IVPB SCH (08:47)
[2018-02-23] MEDS: Aspirin 81 MG TAB.CHEW PO SCH (08:50)
[2018-02-23] MEDS: Orphenadrine 100 MG TABLET.ER PO SCH ×2 (08:50→21:34)
[2018-02-23] MEDS: Ascorbic Acid 500 MG TABLET PO SCH (08:50)
[2018-02-23] MEDS: Folic Acid 1 MG TABLET PO SCH (08:50)
[2018-02-23] MEDS: Gabapentin 300 MG CAPSULE PO SCH ×2 (08:50→21:34)
[2018-02-23] MEDS: 0.9 % Sodium Chloride 1,000 ML IVC SCH (11:43)
--- NOTE | 2018-02-23 12:07 | Internal Med Progress Note ---
Hospitalist Progress Note - Encounter Date of Encounter: 02/23/18 Time of Encounter: 10:00 - Subjective Interval History: No acute events overnight, EGD/colonoscopy normal with stable Hb count, No fever /chills - Exam Vitals: Temp Pulse Resp BP Pulse Ox 99.4 F 95 17 133/84 98 02/23/18 11:16 02/23/18 11:16 02/23/18 11:16 02/23/18 11:16 02/23/18 11:16 Exam: General: Alert and oriented, not in acute distress. Cardiovascular:Normal S1 & S2, No JVD. Pulse regular. Lungs: clear to auscultation, no wheezes/rales Abdomen:Soft, non-tender, no rigidity. Neurological:Normal cognition and motor skills. Non-focal - Assessment and Plan (1) Severe sepsis Current Visit: Yes Status: Acute Assessment and Plan: Presented with fever, tachycardia, and hypotension. 3/4 SIRS criteria Urinalysis positive for leukocyte esterase Lactic acid 2.2, s/p 3.5L of NS for hypotension Associated with DUC, Cr 1.68 (Baseline around 1) -> normalized with IVF Patient has a history of enterococcus and Enterobacter sensitive to levaquin urine culture +ve E.coli (reeder-sensitive) and GPC, sensitivity info on GPC not available since patient is improving on IV levaquin, will continue for now (D4 today) blood cultures NGTD (2) Acute GI bleeding Current Visit: Yes Status: Ruled-out Assessment and Plan: Patient also seen to have a decrease in his hemoglobin. Baseline hemoglobin is 10-11 -> 7.2 -> 6.2 on presentation s/p 2U pRBC with appropriate increase in Hb EGD/colonoscopy normal, FOBT result likely false positive since it can be from anywhere including minor bleed from gum or oral mucosa continue to monitor (3) Anemia Current Visit: Yes Status: Acute Assessment and Plan: unlikely to be due to ongoing GI bleed in the setting of sepsis, appropriate rise in Hb after transfusion, and normal EGD/colonoscopy finding Iron 21 with % saturation 9 despite being on ferrous sulfate IV ferrlecit, 1 out of 8 doses today (4) UTI (urinary tract infection) Current Visit: Yes Status: Acute Assessment and Plan: as above (5) DUC (acute kidney injury) Current Visit: Yes Status: Resolved Assessment and Plan: likely ATN from sepsis or pre-renal from hypovolemia in the setting of GI bleed to anemia, sepsis, UTI Resolved with IVF Avoid nephrotoxic agents (6) Metastatic urothelial carcinoma Current Visit: Yes Status: Chronic Assessment and Plan: Patient has metastatic urothelial carcinoma to lung and liver, CT demonstrating questionable mild progression of liver mets deranged LFT likely secondary to liver metastases Follow-up with oncology as outpatient (7) Repeated falls Current Visit: Yes Status: Acute Assessment and Plan: Likely secondary to orthostatis in the setting of sepsis and GI bleed management as above recommend SNF placement, work with CM (8) Hypertension Current Visit: No Status: Chronic Assessment and Plan: hold off on home meds (9) DVT prophylaxis Current Visit: Yes Status: Acute Assessment and Plan: since suspicion for GI bleed is low, will start heparin SQ - Time Spent with Patient Total time spent is greater than 50% in coordination of care (as documented) at patient's floor/unit and/or counseling patient: Plan of Care Discussed with: social work Internal Medicine: Result - Labs CBC & Chem 7: 02/22/18 03:21 02/22/18 03:02 - VTE Documentation of Mechanical Device: Intermittent pneumatic compression device Consult Discharge Plan - Plan Referrals: Edmund Melton DO [Primary Care Provider] - 02/28/18 11:30 am Justina Bejarano MD [Partnered Physician] - (SENT WEB REQUEST ON 02-21-18 @1112) (3) Anemia Qualifiers: Anemia type: iron deficiency Iron deficiency anemia type: other iron deficiency Qualified Code(s): D50.8 - Other iron deficiency anemias (4) UTI (urinary tract infection) Qualifiers: Urinary tract infection type: acute cystitis Hematuria presence: without hematuria Qualified Code(s): N30.00 - Acute cystitis without hematuria (8) Hypertension Qualifiers: Hypertension type: essential hypertension Qualified Code(s): I10 - Essential (primary) hypertension
[2018-02-23] MEDS: Sodium Ferric Gluconat/Sucrose 125 MG in 0.9 % Sodium Chloride 100 ML IVPB SCH (15:48)
[2018-02-23] MEDS: traMADol 50 MG TABLET PO PRN (17:57)
[2018-02-23] MEDS: *HR* Heparin 5,000 UNIT/ML VIAL SQ SCH (17:58)
[2018-02-24] MEDS: *HR* Heparin 5,000 UNIT/ML VIAL SQ SCH ×2 (06:21→15:48)
[2018-02-24 06:57] LABS: Basophils % 0.1 %; Eosinophils % 0.3 %; Hematocrit 26.2 % (37.5-50.1); Hemoglobin 8.6 g/dL (12.9-16.9); Immature Granulocytes % 0.8 % (0-4); Lymphocytes # 0.8 K/mcL (0.6-4.6); Lymphocytes % 7.7 %; Mean Corpuscular HGB Conc 32.8 g/dL (31.6-35.5); Mean Corpuscular Hemoglobin 29.5 pg (28.0-33.3); Mean Corpuscular Volume 89.7 fL (83.0-100.0); Mean Platelet Volume 9.4 fL (9.4-12.4); Monocytes % 9.9 %; Neutrophils # 8.6 K/mcL (1.6-8.9); Platelet Count 185 K/mcL (140-400); Red Blood Count 2.92 M/mcL (4.19-5.50); Red Cell Distribution Width 20.2 % (11.5-14.5); Segmented Neutrophils % 81.2 %
[2018-02-24 07:22] LABS: BUN/Creatinine Ratio 11 (6-26); Blood Urea Nitrogen 10 mg/dL (8-23); Carbon Dioxide 24 mEq/L (23-29); Chloride 109 mEq/L (98-107); Glucose 105 mg/dL (70-105); Osmolality,Calculated 275 (280-300); Potassium 3.1 mEq/L (3.5-5.1); Sodium 133 mEq/L (136-145); eGFR For Non-African Americans > 60 (> 60)
[2018-02-24] MEDS: Ascorbic Acid 500 MG TABLET PO SCH (09:59)
[2018-02-24] MEDS: Orphenadrine 100 MG TABLET.ER PO SCH ×2 (09:59→21:33)
[2018-02-24] MEDS: Gabapentin 300 MG CAPSULE PO SCH ×2 (09:59→21:33)
[2018-02-24] MEDS: Aspirin 81 MG TAB.CHEW PO SCH (09:59)
[2018-02-24] MEDS: Folic Acid 1 MG TABLET PO SCH (10:00)
[2018-02-24] MEDS: Acetaminophen 325 MG TABLET PO PRN ×2 (10:00→23:45)
[2018-02-24] MEDS: Levofloxacin 750 MG/150 ML 750 MG/150 ML BAG IVPB SCH (10:00)
--- NOTE | 2018-02-24 11:06 | Internal Med Progress Note ---
Hospitalist Progress Note - Encounter Date of Encounter: 02/24/18 Time of Encounter: 11:04 - Subjective Interval History: Mr. Randolph is a 62 year old male presented to [facility] emergency department for chief complaint of falls. Patient reports bilateral lower extremity weakness that has worsened in the past week. Patient has a history of metastatic urothelial stage IV cancer with lung metastasis on chemotherapy with last treatment 2 weeks ago. He is status post cystectomy, prostatectomy, and left nephrectomy with right urostomy at [facility] secondary to his bladder cancer. At [facility] emergency department he was found to have anemia with a hemoglobin of 7.2, where normally is around 10. Also he had elevated serum creatinine 1.68. Urine from urostomy bag was positive for leukocyte esterase, cloudy. His temperature was elevated 100.6 and is tachycardic. Patient's stool occult blood was positive as well. Patient was also hypotensive at [facility] emergency department and was given 3.5 L of normal saline. He was also given 1 dose of Zosyn. Patient had normla EGD and colonoscopy on 02/22, had 2 units of PRBC on 02/22, HB has been stable UTI, pending final culture weakness--discharge to SNF, he lives at home alone ARF resolved - Exam Vitals: Temp Pulse Resp BP Pulse Ox 99.9 F H 85 17 130/82 95 02/24/18 07:23 02/24/18 07:23 02/24/18 07:23 02/24/18 07:23 02/24/18 07:23 Exam: CONSTITUTIONAL: patient appears as an age appropriate male in no acute distress. EYES Clear sclerae, bilateral pupils are equal, reactive to light. EMOI. RESPIRATORY: No accessory muscle use, bilateral clear to auscultation, no wheezing, no crackles/rales. CARDIOVASCULAR: Regular heart rate, normal S1 and S2, no murmurs GASTROINTESTINAL: bowel sounds present, soft, no tenderness. MUSCULOSKELETAL: Joints in normal range of motion, no clubbing, no edema, no cyanosis. Bilateral peripheral pulses 2+. NEUROLOGIC: CN II to XII are grossly intact, no focal neurological deficit. - Assessment and Plan (1) UTI (urinary tract infection) Current Visit: Yes Status: Acute Assessment and Plan: complicated UTI related to the status post cystectomy, prostatectomy, and left nephrectomy with right urostomy at [facility] secondary to his bladder cancer urine growing E coli and another GPC, current on levaquin, clinically improving. will continue levaquin (2) Hypertension Current Visit: Yes Status: Chronic Assessment and Plan: conitnue home meds (3) Anemia Current Visit: Yes Status: Acute Assessment and Plan: had normal EGD and colonoscopy on 02/22, likley related to wide spread cancer and chem prietot had 2 units of PRBC, Hb stable had IV iron for iron deficiency (4) DUC (acute kidney injury) Current Visit: Yes Status: Acute Assessment and Plan: resolved with IVF (5) Severe sepsis Current Visit: Yes Status: Acute Assessment and Plan: from UTI resolved (6) Metastatic urothelial carcinoma Current Visit: Yes Status: Chronic Assessment and Plan: metastatase to lung, liver, ongoing chemo (7) Repeated falls Current Visit: Yes Status: Acute Assessment and Plan: consult pT and oT, SNF palcement, patent lives at home alone (8) DVT prophylaxis Current Visit: Yes Status: Acute Assessment and Plan: heparins SC - Time Spent with Patient Total time spent is greater than 50% in coordination of care (as documented) at patient's floor/unit and/or counseling patient: 25 - 35 minutes Internal Medicine: Result - Labs CBC & Chem 7: 02/24/18 04:00 02/24/18 04:00 Labs: Short CBC 02/24/18 Range/Units 04:00 WBC 10.5 (4.3-11.1) K/mcL Hgb 8.6 L (12.9-16.9) g/dL Hct 26.2 L (37.5-50.1) % Plt Count 185 (140-400) K/mcL Neutrophils # 8.6 (1.6-8.9) K/mcL BMP 02/24/18 04:00 Sodium 133 L Potassium 3.1 L Chloride 109 H Carbon Dioxide 24 BUN 10 Creatinine 0.94 Glucose 105 Calcium 8.0 L - VTE Documentation of Mechanical Device: Intermittent pneumatic compression device Consult Discharge Plan - Plan Referrals: Edmund Melton DO [Primary Care Provider] - 02/28/18 11:30 am Justina Bejarano MD [Partnered Physician] - (SENT WEB REQUEST ON 02-21-18 @6432) (1) UTI (urinary tract infection) Qualifiers: Urinary tract infection type: acute cystitis Hematuria presence: without hematuria Qualified Code(s): N30.00 - Acute cystitis without hematuria (2) Hypertension Qualifiers: Hypertension type: essential hypertension Qualified Code(s): I10 - Essential (primary) hypertension (3) Anemia Qualifiers: Anemia type: iron deficiency Iron deficiency anemia type: other iron deficiency Qualified Code(s): D50.8 - Other iron deficiency anemias
[2018-02-24] MEDS: Sodium Ferric Gluconat/Sucrose 125 MG in 0.9 % Sodium Chloride 100 ML IVPB SCH (15:47)
[2018-02-25] MEDS: *HR* Heparin 5,000 UNIT/ML VIAL SQ SCH ×2 (05:20→17:05)
[2018-02-25 05:39] LABS: Basophils % 0.1 %; Eosinophils % 0.2 %; Hematocrit 27.3 % (37.5-50.1); Hemoglobin 8.9 g/dL (12.9-16.9); Mean Corpuscular HGB Conc 32.6 g/dL (31.6-35.5); Mean Corpuscular Hemoglobin 29.3 pg (28.0-33.3); Mean Corpuscular Volume 89.8 fL (83.0-100.0); Mean Platelet Volume 9.7 fL (9.4-12.4); Monocytes # 1.1 K/mcL (0.0-1.3); Monocytes % 9.5 %; Neutrophils # 9.8 K/mcL (1.6-8.9); Platelet Count 201 K/mcL (140-400); Red Blood Count 3.04 M/mcL (4.19-5.50); Segmented Neutrophils % 81.2 %
[2018-02-25 06:01] LABS: BUN/Creatinine Ratio 11 (6-26); Blood Urea Nitrogen 9 mg/dL (8-23); Calcium 8.2 mg/dL (8.6-10.3); Carbon Dioxide 25 mEq/L (23-29); Chloride 104 mEq/L (98-107); Glucose 119 mg/dL (70-105); Osmolality,Calculated 284 (280-300); Potassium 3.7 mEq/L (3.5-5.1); Sodium 137 mEq/L (136-145); eGFR For Non-African Americans > 60 (> 60)
[2018-02-25] MEDS: Gabapentin 300 MG CAPSULE PO SCH ×2 (08:16→22:19)
[2018-02-25] MEDS: Folic Acid 1 MG TABLET PO SCH (08:17)
[2018-02-25] MEDS: Sodium Ferric Gluconat/Sucrose 125 MG in 0.9 % Sodium Chloride 100 ML IVPB SCH (08:17)
[2018-02-25] MEDS: Orphenadrine 100 MG TABLET.ER PO SCH ×2 (08:17→22:18)
[2018-02-25] MEDS: Ascorbic Acid 500 MG TABLET PO SCH (08:17)
[2018-02-25] MEDS: Aspirin 81 MG TAB.CHEW PO SCH (08:17)
[2018-02-25] MEDS: Levofloxacin 750 MG/150 ML 750 MG/150 ML BAG IVPB SCH (09:21)
--- NOTE | 2018-02-25 10:14 | Internal Med Progress Note ---
Hospitalist Progress Note - Encounter Date of Encounter: 02/25/18 Time of Encounter: 10:12 - Subjective Interval History: Mr. Randolph is a 62 year old male presented to [place] emergency department for chief complaint of falls. Patient reports bilateral lower extremity weakness that has worsened in the past week. Patient has a history of metastatic urothelial stage IV cancer with lung metastasis on chemotherapy with last treatment 2 weeks ago. He is status post cystectomy, prostatectomy, and left nephrectomy with right urostomy at [facility] secondary to his bladder cancer. At [place] emergency department he was found to have anemia with a hemoglobin of 7.2, where normally is around 10. Also he had elevated serum creatinine 1.68. Urine from urostomy bag was positive for leukocyte esterase, cloudy. His temperature was elevated 100.6 and is tachycardic. Patient's stool occult blood was positive as well. Patient was also hypotensive at [place] emergency department and was given 3.5 L of normal saline. He was also given 1 dose of Zosyn. Patient had normla EGD and colonoscopy on 02/22, had 2 units of PRBC on 02/22, HB has been stable UTI, pending final culture weakness--discharge to SNF, he lives at home alone ARF resolved Urine culture growing E coli and Enterococci, sensitive to ampicillin will discharge on oral Augmentin BC on 02/20 times 2 are negative await for placement - Exam Vitals: Temp Pulse Resp BP Pulse Ox 99.1 F 83 16 118/71 98 02/25/18 07:07 02/25/18 07:07 02/25/18 07:07 02/25/18 07:07 02/25/18 07:07 Exam: CONSTITUTIONAL: patient appears as an age appropriate male in no acute distress. EYES Clear sclerae, bilateral pupils are equal, reactive to light. EMOI. RESPIRATORY: No accessory muscle use, bilateral clear to auscultation, no wheezing, no crackles/rales. CARDIOVASCULAR: Regular heart rate, normal S1 and S2, no murmurs GASTROINTESTINAL: bowel sounds present, soft, no tenderness. MUSCULOSKELETAL: Joints in normal range of motion, no clubbing, no edema, no cyanosis. Bilateral peripheral pulses 2+. NEUROLOGIC: CN II to XII are grossly intact, no focal neurological deficit. - Assessment and Plan (1) UTI (urinary tract infection) Current Visit: Yes Status: Acute Assessment and Plan: complicated UTI related to the status post cystectomy, prostatectomy, and left nephrectomy with right urostomy at [facility] secondary to his bladder cancer urine growing E coli and another GPC, both are sensitive to ampicillin, change to IV unasyn BC on 02/20 are negative will discharge on augmentin for complicated UTI (2) Hypertension Current Visit: Yes Status: Chronic Assessment and Plan: contineu home meds (3) Anemia Current Visit: Yes Status: Acute Assessment and Plan: had normal EGD and colonoscopy on 02/22, likley related to wide spread cancer and chem luamtent had 2 units of PRBC, Hb stable had IV iron for iron deficiency (4) DUC (acute kidney injury) Current Visit: Yes Status: Acute Assessment and Plan: resolved (5) Severe sepsis Current Visit: Yes Status: Acute Assessment and Plan: resolved (6) Metastatic urothelial carcinoma Current Visit: Yes Status: Chronic Assessment and Plan: metastatase to lung, liver, ongoing chemo (7) Repeated falls Current Visit: Yes Status: Acute Assessment and Plan: await for SNF (8) DVT prophylaxis Current Visit: Yes Status: Acute Assessment and Plan: heparin SC - Time Spent with Patient Total time spent is greater than 50% in coordination of care (as documented) at patient's floor/unit and/or counseling patient: Internal Medicine: Result - Labs CBC & Chem 7: 02/25/18 04:35 02/25/18 04:35 Labs: Short CBC 02/25/18 Range/Units 04:35 WBC 12.0 H (4.3-11.1) K/mcL Hgb 8.9 L (12.9-16.9) g/dL Hct 27.3 L (37.5-50.1) % Plt Count 201 (140-400) K/mcL Neutrophils # 9.8 H (1.6-8.9) K/mcL BMP 02/25/18 04:35 Sodium 137 Potassium 3.7 Chloride 104 Carbon Dioxide 25 BUN 9 Creatinine 0.85 Glucose 119 H Calcium 8.2 L - VTE Documentation of Mechanical Device: Intermittent pneumatic compression device Consult Discharge Plan - Plan Referrals: Edmund Mleton DO [Primary Care Provider] - 02/28/18 11:30 am Justina Bejarano MD [Partnered Physician] - (SENT WEB REQUEST ON 02-21-18 @1112) (1) UTI (urinary tract infection) Qualifiers: Urinary tract infection type: acute cystitis Hematuria presence: without hematuria Qualified Code(s): N30.00 - Acute cystitis without hematuria (2) Hypertension Qualifiers: Hypertension type: essential hypertension Qualified Code(s): I10 - Essential (primary) hypertension (3) Anemia Qualifiers: Anemia type: iron deficiency Iron deficiency anemia type: other iron deficiency Qualified Code(s): D50.8 - Other iron deficiency anemias
[2018-02-25] MEDS: Ampicillin/Sulbactam 3,000 MG in 0.9 % Sodium Chloride Mini Bag 100 ML IVPB SCH ×2 (12:35→17:05)
[2018-02-25] MEDS: traMADol 50 MG TABLET PO PRN (14:38)
[2018-02-25] MEDS: Acetaminophen 325 MG TABLET PO PRN (22:37)
[2018-02-25] MEDS ORDERED: 0.9 % Sodium Chloride 1,000 ML IVC ONE (23:49)
[2018-02-25] MEDS ORDERED: Acetaminophen 650 MG RECTAL SUPP RC PRN (23:52)
[2018-02-25] MEDS ORDERED: 0.9 % Sodium Chloride 1,000 ML ONE (23:54)
[2018-02-26] MEDS: Ampicillin/Sulbactam 3,000 MG in 0.9 % Sodium Chloride Mini Bag 100 ML IVPB SCH ×2 (00:06→05:36)
[2018-02-26] MEDS: 0.9 % Sodium Chloride 1,000 ML IVC SCH ×3 (01:13→21:52)
[2018-02-26] MEDS: *HR* Heparin 5,000 UNIT/ML VIAL SQ SCH ×2 (05:35→16:56)
[2018-02-26 08:19] LABS: BUN/Creatinine Ratio 11 (6-26); Blood Urea Nitrogen 9 mg/dL (8-23); Calcium 7.9 mg/dL (8.6-10.3); Carbon Dioxide 25 mEq/L (23-29); Chloride 107 mEq/L (98-107); Glucose 117 mg/dL (70-105); Osmolality,Calculated 286 (280-300); Potassium 3.6 mEq/L (3.5-5.1); Sodium 138 mEq/L (136-145); eGFR For Non-African Americans > 60 (> 60)
[2018-02-26 08:27] LABS: Basophils % 0.1 %; Eosinophils # 0.1 K/mcL (0.0-0.6); Eosinophils % 0.7 %; Hematocrit 26.2 % (37.5-50.1); Hemoglobin 8.3 g/dL (12.9-16.9); Immature Granulocytes % 0.7 % (0-4); Lymphocytes # 0.7 K/mcL (0.6-4.6); Lymphocytes % 5.8 %; Mean Corpuscular HGB Conc 31.7 g/dL (31.6-35.5); Mean Corpuscular Hemoglobin 28.7 pg (28.0-33.3); Mean Corpuscular Volume 90.7 fL (83.0-100.0); Mean Platelet Volume 9.9 fL (9.4-12.4); Monocytes # 0.9 K/mcL (0.0-1.3); Monocytes % 8.2 %; Neutrophils # 9.7 K/mcL (1.6-8.9); Platelet Count 198 K/mcL (140-400); Red Blood Count 2.89 M/mcL (4.19-5.50); Red Cell Distribution Width 20.5 % (11.5-14.5); Segmented Neutrophils % 84.5 %
[2018-02-26] MEDS: Aspirin 81 MG TAB.CHEW PO SCH (08:34)
[2018-02-26] MEDS: Folic Acid 1 MG TABLET PO SCH (08:34)
[2018-02-26] MEDS: Ascorbic Acid 500 MG TABLET PO SCH (08:34)
[2018-02-26] MEDS: Acetaminophen 325 MG TABLET PO PRN ×2 (08:34→21:53)
[2018-02-26] MEDS: Orphenadrine 100 MG TABLET.ER PO SCH ×2 (08:34→21:53)
[2018-02-26] MEDS: Gabapentin 300 MG CAPSULE PO SCH ×2 (08:34→21:53)
--- NOTE | 2018-02-26 08:45 | Internal Med Progress Note ---
Hospitalist Progress Note - Encounter Date of Encounter: 02/26/18 Time of Encounter: 08:43 - Subjective Interval History: Mr. Randolph is a 62 year old male presented to [place] emergency department for chief complaint of falls. Patient reports bilateral lower extremity weakness that has worsened in the past week. Patient has a history of metastatic urothelial stage IV cancer with lung metastasis on chemotherapy with last treatment 2 weeks ago. He is status post cystectomy, prostatectomy, and left nephrectomy with right urostomy at [facility] secondary to his bladder cancer. At [place] emergency department he was found to have anemia with a hemoglobin of 7.2, where normally is around 10. Also he had elevated serum creatinine 1.68. Urine from urostomy bag was positive for leukocyte esterase, cloudy. His temperature was elevated 100.6 and is tachycardic. Patient's stool occult blood was positive as well. Patient was also hypotensive at [place] emergency department and was given 3.5 L of normal saline. He was also given 1 dose of Zosyn. Patient had normla EGD and colonoscopy on 02/22, had 2 units of PRBC on 02/22, HB has been stable UTI, pending final culture weakness--discharge to SNF, he lives at home alone ARF resolved Urine culture growing E coli and Enterococci, sensitive to ampicillin BC on 02/20 times 2 are negative await for placement Patient developed a fever last night temperature 103 associated with chills. He denies productive cough, no diarrhea abdominal pain. Patient has a infusion port placement for chemotherapy. We will do his 2 sets of culture from infusion port, check x-ray and UA I will broaden antibiotics to vancomycin and levaquin for possible line infection and UTI - Exam Vitals: Temp Pulse Resp BP Pulse Ox 101.4 F H 86 18 136/85 98 02/26/18 07:56 02/26/18 07:56 02/26/18 07:56 02/26/18 07:56 02/26/18 07:56 Exam: CONSTITUTIONAL: patient appears as an age appropriate male in no acute distress. EYES Clear sclerae, bilateral pupils are equal, reactive to light. EMOI. RESPIRATORY: No accessory muscle use, bilateral clear to auscultation, no wheezing, no crackles/rales. CARDIOVASCULAR: Regular heart rate, normal S1 and S2, no murmurs GASTROINTESTINAL: bowel sounds present, soft, no tenderness. MUSCULOSKELETAL: Joints in normal range of motion, no clubbing, no edema, no cyanosis. Bilateral peripheral pulses 2+. NEUROLOGIC: CN II to XII are grossly intact, no focal neurological deficit. - Assessment and Plan (1) UTI (urinary tract infection) Current Visit: Yes Status: Acute Assessment and Plan: complicated UTI related to the status post cystectomy, prostatectomy, and left nephrectomy with right urostomy at [facility] secondary to his bladder cancer urine growing E coli and enterococci, both are sensitive to ampicillin, can be discharge on oral augmentin BC on 02/20 are negative Patient developed fever last night 103, ATB broaden to vancomycin, and levaquin new BC done today (2) Hypertension Current Visit: Yes Status: Chronic Assessment and Plan: contineu home meds (3) Anemia Current Visit: Yes Status: Acute Assessment and Plan: had normal EGD and colonoscopy on 02/22, likley related to wide spread cancer and chem luamtent had 2 units of PRBC, Hb stable had IV iron for iron deficiency (4) DUC (acute kidney injury) Current Visit: Yes Status: Acute Assessment and Plan: resolved (5) Severe sepsis Current Visit: Yes Status: Acute Assessment and Plan: with new fever and leukocytosis, will do blood culture from port, check UA and CXR (6) Metastatic urothelial carcinoma Current Visit: Yes Status: Chronic Assessment and Plan: metastatase to lung, liver, ongoing chemo (7) Repeated falls Current Visit: Yes Status: Acute Assessment and Plan: await for SNF (8) DVT prophylaxis Current Visit: Yes Status: Acute Assessment and Plan: heparin SC - Time Spent with Patient Total time spent is greater than 50% in coordination of care (as documented) at patient's floor/unit and/or counseling patient: 25 - 35 minutes Plan of Care Discussed with: patient Internal Medicine: Result - Labs CBC & Chem 7: 02/26/18 07:50 02/26/18 07:50 Labs: Short CBC 02/26/18 Range/Units 07:50 WBC 11.4 H (4.3-11.1) K/mcL Hgb 8.3 L (12.9-16.9) g/dL Hct 26.2 L (37.5-50.1) % Plt Count 198 (140-400) K/mcL Neutrophils # 9.7 H (1.6-8.9) K/mcL BMP 02/26/18 07:50 Sodium 138 Potassium 3.6 Chloride 107 Carbon Dioxide 25 BUN 9 Creatinine 0.84 Glucose 117 H Calcium 7.9 L - VTE Documentation of Mechanical Device: Intermittent pneumatic compression device Consult Discharge Plan - Plan Referrals: Edmund Melton DO [Primary Care Provider] - 02/28/18 11:30 am Justina Bejarano MD [Partnered Physician] - (SENT WEB REQUEST ON 02-21-18 @1112) (1) UTI (urinary tract infection) Qualifiers: Urinary tract infection type: acute cystitis Hematuria presence: without hematuria Qualified Code(s): N30.00 - Acute cystitis without hematuria (2) Hypertension Qualifiers: Hypertension type: essential hypertension Qualified Code(s): I10 - Essential (primary) hypertension (3) Anemia Qualifiers: Anemia type: iron deficiency Iron deficiency anemia type: other iron deficiency Qualified Code(s): D50.8 - Other iron deficiency anemias
[2018-02-26] MEDS: Sodium Ferric Gluconat/Sucrose 125 MG in 0.9 % Sodium Chloride 100 ML IVPB SCH (09:51)
[2018-02-26] MEDS: Levofloxacin 750 MG/150 ML 750 MG/150 ML BAG IVPB SCH (11:14)
[2018-02-26 13:16] LABS: Bilirubin,Urine Negative (Negative); Blood,Urine Moderate (Negative); Clarity,Urine Clear (Clear); Color,Urine Yellow (Yellow); Glucose,Urine (UA) Normal (Normal); Ketones,Urine Negative (Negative); Leukocyte Esterase,Urine Negative (Negative); Nitrite,Urine Negative (Negative); PH,Urine 6.5 pH Units (5.0-8.0); Protein,Urine 100 mg/dL (Neg-Trace); Specific Gravity,Urine 1.012 (1.010-1.025); Urobilinogen,Urine Normal (Normal)
[2018-02-26 13:17] LABS: Bacteria,Urine None Seen per hpf (None-Few); Hyaline Casts,Urine None Seen per lpf (None-Few); Squamous Epithelial Cell,Urine Many per lpf (None-Few)
[2018-02-26 13:54] LABS: Yeast,Urine Few per hpf (None Seen)
[2018-02-26] MEDS: traMADol 50 MG TABLET PO PRN (21:53)
[2018-02-27] MEDS: 0.9 % Sodium Chloride 1,000 ML IVC SCH ×4 (05:51→21:34)
[2018-02-27] MEDS: *HR* Heparin 5,000 UNIT/ML VIAL SQ SCH ×2 (05:52→16:48)
[2018-02-27 06:19] LABS: Basophils % 0.1 %; Eosinophils # 0.1 K/mcL (0.0-0.6); Eosinophils % 0.6 %; Hematocrit 25.5 % (37.5-50.1); Immature Granulocytes % 0.9 % (0-4); Lymphocytes # 0.7 K/mcL (0.6-4.6); Lymphocytes % 6.4 %; Mean Corpuscular HGB Conc 31.4 g/dL (31.6-35.5); Mean Corpuscular Hemoglobin 28.6 pg (28.0-33.3); Mean Corpuscular Volume 91.1 fL (83.0-100.0); Mean Platelet Volume 9.7 fL (9.4-12.4); Monocytes % 8.8 %; Neutrophils # 9.6 K/mcL (1.6-8.9); Platelet Count 189 K/mcL (140-400); Red Cell Distribution Width 20.5 % (11.5-14.5); Segmented Neutrophils % 83.2 %
[2018-02-27 06:39] LABS: BUN/Creatinine Ratio 12 (6-26); Blood Urea Nitrogen 10 mg/dL (8-23); Calcium 7.9 mg/dL (8.6-10.3); Carbon Dioxide 21 mEq/L (23-29); Chloride 108 mEq/L (98-107); Glucose 93 mg/dL (70-105); Magnesium 1.6 mg/dL (1.6-2.6); Osmolality,Calculated 285 (280-300); Potassium 3.6 mEq/L (3.5-5.1); Sodium 138 mEq/L (136-145); eGFR For Non-African Americans > 60 (> 60)
[2018-02-27] MEDS: Aspirin 81 MG TAB.CHEW PO SCH (08:24)
[2018-02-27] MEDS: Ascorbic Acid 500 MG TABLET PO SCH (08:25)
[2018-02-27] MEDS: Folic Acid 1 MG TABLET PO SCH (08:25)
[2018-02-27] MEDS: Orphenadrine 100 MG TABLET.ER PO SCH ×2 (08:25→21:33)
[2018-02-27] MEDS: Gabapentin 300 MG CAPSULE PO SCH ×2 (08:25→21:33)
[2018-02-27] MEDS: Sodium Ferric Gluconat/Sucrose 125 MG in 0.9 % Sodium Chloride 100 ML IVPB SCH (09:29)
[2018-02-27] MEDS: Levofloxacin 750 MG/150 ML 750 MG/150 ML BAG IVPB SCH (10:37)
--- NOTE | 2018-02-27 12:36 | Internal Med Progress Note ---
Hospitalist Progress Note - Encounter Date of Encounter: 02/27/18 Time of Encounter: 11:44 - Subjective Interval History: Patient seen and examined this morning. No acute overnight events. Offers no new complains. - Exam Vitals: Temp Pulse Resp BP Pulse Ox 99.8 F H 73 16 126/73 97 02/27/18 10:50 02/27/18 10:50 02/27/18 10:50 02/27/18 10:50 02/27/18 10:50 Exam: CONSTITUTIONAL: patient appears as an age appropriate male in no acute distress. EYES Clear sclerae, bilateral pupils are equal, reactive to light. EMOI. RESPIRATORY: No accessory muscle use, bilateral clear to auscultation, no wheezing, no crackles/rales. CARDIOVASCULAR: Regular heart rate, normal S1 and S2, no murmurs GASTROINTESTINAL: bowel sounds present, soft, no tenderness. MUSCULOSKELETAL: Joints in normal range of motion, no clubbing, no edema, no cyanosis. Bilateral peripheral pulses 2+. NEUROLOGIC: CN II to XII are grossly intact, no focal neurological deficit. - Assessment and Plan (1) UTI (urinary tract infection) Current Visit: Yes Status: Acute (2) DVT prophylaxis Current Visit: Yes Status: Acute (3) Hypertension Current Visit: Yes Status: Chronic (4) Anemia Current Visit: Yes Status: Acute (5) DUC (acute kidney injury) Current Visit: Yes Status: Acute (6) Acute GI bleeding Current Visit: Yes Status: Ruled-out (7) Severe sepsis Current Visit: Yes Status: Acute (8) Metastatic urothelial carcinoma Current Visit: Yes Status: Chronic (9) Repeated falls Current Visit: Yes Status: Acute - Summary of Assessment and Plan Summary of Assessment and Plan: UTI - Started on treatement for complicated UTI related to the status post cystectomy, prostatectomy, and left nephrectomy with right urostomy at [facility] secondary to his bladder cancer - urine growing E coli and enterococci, both are sensitive to ampicillin. BC on 02/20 are negative - Patient developed fever 02/25 of 103 , ATB broaden to vancomycin. levaquin was continued. new BC from periphery and central line were obtained 02/26. Will obtain PCR on Blood sample if possible. Will get ID Consult. Hypertension -continue home meds. Anemia - had normal EGD and colonoscopy on 02/22 - likley related to wide spread cancer and chem treatment - s/p 2 units of PRBC, Hb stable DUC - resolved Severe sepsis -with new fever and leukocytosis. f/u blood culture from port. CXR with no Pneumonia. abnormal UA but poor sample. Metastatic urothelial carcinoma - metastatase to lung, liver, ongoing chemo. Repeated falls - await for SNF DVT prophylaxis - heparin SC - Time Spent with Patient Total time spent is greater than 50% in coordination of care (as documented) at patient's floor/unit and/or counseling patient: Internal Medicine: Result - Labs CBC & Chem 7: 02/27/18 06:00 02/27/18 06:00 Labs: Short CBC 02/27/18 Range/Units 06:00 WBC 11.6 H (4.3-11.1) K/mcL Hgb 8.0 L (12.9-16.9) g/dL Hct 25.5 L (37.5-50.1) % Plt Count 189 (140-400) K/mcL Neutrophils # 9.6 H (1.6-8.9) K/mcL BMP 02/27/18 06:00 Sodium 138 Potassium 3.6 Chloride 108 H Carbon Dioxide 21 L BUN 10 Creatinine 0.83 Glucose 93 Calcium 7.9 L Urine 02/26/18 Range/Units 12:45 Urine Color Yellow (Yellow) Urine Clarity Clear (Clear) Urine pH 6.5 (5.0-8.0) pH Units Ur Specific [place] 1.012 (1.010-1.025) Urine Protein 100 H (Neg-Trace) mg/dL Urine Glucose (UA) Normal (Normal) mg/dL - Impressions Impressions Chest X-Ray 02/26/18 08:41 IMPRESSION: No acute abnormality. D/ / 02/26/2018 09:56:16 Morales Greene MD / Beverly Dalton Interpreting Provider: Morales Greene MD - VTE Documentation of Mechanical Device: Intermittent pneumatic compression device Consult Discharge Plan - Plan Referrals: Edmund Melton DO [Primary Care Provider] - 02/28/18 11:30 am Justina Bejarano MD [Partnered Physician] - (SENT WEB REQUEST ON 8-29-18 @1112) (1) UTI (urinary tract infection) Qualifiers: Urinary tract infection type: acute cystitis Hematuria presence: without hematuria Qualified Code(s): N30.00 - Acute cystitis without hematuria (3) Hypertension Qualifiers: Hypertension type: essential hypertension Qualified Code(s): I10 - Essential (primary) hypertension (4) Anemia Qualifiers: Anemia type: iron deficiency Iron deficiency anemia type: other iron deficiency Qualified Code(s): D50.8 - Other iron deficiency anemias
--- NOTE | 2018-02-27 13:47 | Infectious Disease Consult ---
Date of Encounter: 02/27/18 Time of Encounter: 13:47 Assessment and Plan (1) Severe sepsis Status: Acute Assessment and plan: Resolved On admission patient had 3 SIRS criteria plus acute kidney injury Likely secondary to complicated UTI (2) UTI (urinary tract infection) Status: Acute Assessment and plan: Urine culture positive for Escherichia coli that is pansensitive Urine culture also positive for Enterococcus faecalis that is ampicillin sensitive DC vancomycin and levofloxacin Start the patient on Unasyn If patient continues to do better consider switching to Augmentin by mouth to finish a 14 day course total. Await blood cultures to finalize Monitor labs and for drug toxicity Qualifiers: Urinary tract infection type: acute cystitis Hematuria presence: without hematuria Qualified Code(s): N30.00 - Acute cystitis without hematuria (3) Metastatic urothelial carcinoma Status: Chronic Assessment and plan: With metastases to the liver and the lungs. Last time he was seen by hematology oncology was January 23 and received chemotherapy Prognosis guarded (4) Repeated falls Status: Acute Infectious Disease HPI - Data of Consult Patient: new to practice Consult date: 02/27/18 Requesting Physician: Missy Warren MD Primary Care Provider: Edmund Melton DO - Consult Narrative Reason for consult: severe sepsis History of present illness: Mr. Randolph is a 62 year old male Patient is a 62-year-old gentleman who presented to [facility] on 02/21/2018 status post fall, we are consulted today on 02/27/2018 for severe sepsis and urinary tract infection. Patient is 59-year-old gentleman with history of bladder cancer stage IV with metastases to lungs diagnosed in 2012 status post removal of the bladder prostate and left kidney at [facility] where he had a radical cystectomy with ileal loop dilution for high-volume unresectable papillary disease in 2013, diabetes mellitus type 2, fatty liver disease, hyperlipidemia, hypertension obesity and bladder cancer presented to [facility] with recurrent falls. At that time patient denied any trauma to the head or other areas. Denied any fevers chills headache blurred vision. Denied any changes in hearing. Denied any difficulty swallowing or painful swallowing or neck pain. Patient was noted to be anemic at outside facility and was transferred to [facility] for further evaluation. Since admission, the patient has been febrile with a MAXIMUM TEMPERATURE of 103.1 Fahrenheit, no tachycardia, he did have episodes of tachypnea. Patient WBC peaked at 12,000 with a neutrophil predominance of 81% no bands. Patient on presentation was also in acute kidney injury with a BMI of 24 creatinine 1.68 and urinalysis showed significant pyuria and culture grew Escherichia coli that was pansensitive and Enterococcus faecalis that is ampicillin sensitive. Blood cultures were obtained 2 on February 26 both of which came back no growth to date. Patient also had a chest x-ray which showed no acute abnormality. Patient had a CT abdomen and pelvis on February 20 which revealed questionable mild progression of liver metastasis otherwise no significant interval change in cavitary pulmonary metastasis in the lung bases as well as osseous metastasis. No other acute abdominal pelvic abnormality. Patient was initially started on levofloxacin and later switched to Unasyn on February 25 we were asked to evaluate the patients make further recommendations. CC: Missy Warren MD Past Med Surg Social Fam HX - Past Medical History Medical history: cancer, diabetes, hyperlipidemia, hypertension, liver disease, other Additional medical history: Prostate, bladder, kidney, lung cancer onset 2012 Psychiatric history: no psych history - Past Surgical History Surgical History: other Additional surgical history: bladder and prostate removed, kidney removed, urostomy - Social History Smoking Status: Never smoker Smokeless Tobacco Status: No Alcohol use: none Drug use: none - Family History Mother Living Status: Cause of : [place] Hx Family Cardiac Disorders: Yes Father Living Status: Hx Family Cancer: Yes (liver) Infectious Disease-CN:Meds Aspirin 81 mg PO DAILY 02/21/17 [History] Carvedilol [Coreg] 6.25 mg PO BID 02/21/17 [History] Ferrous Sulfate [Iron] 325 mg PO TID 02/21/17 [History] Gabapentin [Neurontin] 600 mg PO BID 02/21/17 [History] Multivits,Ca,Min/Iron/FA/Lycop [Centrum Men's Tablet] 1 tab PO DAILY 02/21/17 [ History] Orphenadrine Citrate 100 mg PO BID 02/21/17 [History] Rosuvastatin [Crestor] 40 mg PO HS 02/21/17 [History] Valsartan [Diovan] 80 mg PO DAILY 02/21/17 [History] Ascorbate Calcium [Vitamin C] 500 mg PO DAILY 03/22/17 [History] Docusate [Colace] 100 mg PO DAILY 03/22/17 [History] Folic Acid 1 mg PO DAILY #30 12/19/17 [Rx] OxyCODONE Immed Rel [Roxicodone 10 MG] 10 mg PO TID PRN 01/10/18 [History] Methyl Salicylate/Menthol [Salonpas Patch] 1 each TP DAILY PRN 02/21/18 [History ] 3 Allergy/AdvReac Type Severity Reaction Status Date / Time No Known Allergies Allergy Verified 02/21/18 09:00 Review of systems: 10 point review of systems done, negative other for what is mentioned in history of present illness. Exam - Constitutional Vitals: Temp Pulse Resp BP Pulse Ox 99.8 F H 73 16 126/73 97 02/27/18 10:50 02/27/18 10:50 02/27/18 10:50 02/27/18 10:50 02/27/18 10:50 General appearance: cooperative, no acute distress, no febrile - Head Head exam: Present: atraumatic, normocephalic - Eye Eye exam: Present: EOMI, PERRL Additional comments: Appears slightly jaundiced - ENT ENT exam: Present: mucous membranes dry - Neck Neck exam: Present: full ROM. Absent: meningismus - Respiratory Respiratory exam: Present: CTAB. Absent: wheezes - Cardiovascular Cardiovascular exam: Present: RRR, +S1, +S2 - GI/Abdominal GI/Abdominal exam: Present: normal bowel sounds, soft, tenderness Additional comments: Urostomy bag intact - Extremities Exam Extremities exam: Present: full ROM, normal inspection - Neurological Exam Neurological exam: Present: alert, oriented X3. Absent: speech deficit - Psychiatric Psychiatric exam: Present: anxious, flat affect - Skin Skin exam: Present: normal color. Absent: rash Infectious Disease CN: Results - Labs CBC & Chem 7: 02/27/18 06:00 02/27/18 06:00 Cultures: Cultures 02/26/18 09:43 Blood Culture - Preliminary Central Venous Catheter Culture is incubating and being continuously monitored for growth. Final report to follow. 02/26/18 09:46 Blood Culture - Preliminary Peripheral Venipuncture Culture is incubating and being continuously monitored for growth. Final report to follow. Serology: Serology 02/26/18 Range/Units 12:45 Urine Color Yellow (Yellow) Urine Clarity Clear (Clear) Urine pH 6.5 (5.0-8.0) pH Units Ur Specific [place] 1.012 (1.010-1.025) Urine Protein 100 H (Neg-Trace) mg/dL Urine Glucose (UA) Normal (Normal) mg/dL Urine Ketones Negative (Negative) mg/dL Urine Blood Moderate H (Negative) Urine Nitrite Negative (Negative) Urine Bilirubin Negative (Negative) Urine Urobilinogen Normal (Normal) mg/dL Ur Leukocyte Esterase Negative (Negative) Urine Microscopic RBC 3-5 H (0-3) per hpf Urine Microscopic WBC 5-15 H (0-3) per hpf Ur Squamous Epith Cells Many H (None-Few) per lpf Urine Bacteria None Seen (None-Few) per hpf Hyaline Casts None Seen (None-Few) per lpf Urine Yeast Few H (None Seen) per hpf Ur Culture Indicated? NO (NO) - VTE Documentation of Mechanical Device: Intermittent pneumatic compression device Consult Discharge Plan - Plan Referrals: Edmund Melton DO [Primary Care Provider] - 02/28/18 11:30 am Justina Bejarano MD [Partnered Physician] - (SENT WEB REQUEST ON 02-21-18 @9920)
[2018-02-27] MEDS ORDERED: Aminoglycoside Consult 1 EACH MC ONE (18:32)
[2018-02-27] MEDS: Acetaminophen 325 MG TABLET PO PRN (21:33)
[2018-02-27] MEDS: traMADol 50 MG TABLET PO PRN (21:34)
[2018-02-28] MEDS: *HR* Heparin 5,000 UNIT/ML VIAL SQ SCH ×2 (06:04→18:24)
[2018-02-28] MEDS: 0.9 % Sodium Chloride 1,000 ML IVC SCH ×2 (06:48→15:17)
[2018-02-28] MEDS: Aspirin 81 MG TAB.CHEW PO SCH (08:02)
[2018-02-28] MEDS: Ascorbic Acid 500 MG TABLET PO SCH (08:03)
[2018-02-28] MEDS: Orphenadrine 100 MG TABLET.ER PO SCH ×2 (08:03→21:01)
[2018-02-28] MEDS: Gabapentin 300 MG CAPSULE PO SCH ×2 (08:03→21:01)
[2018-02-28] MEDS: Folic Acid 1 MG TABLET PO SCH (08:03)
[2018-02-28] MEDS: Levofloxacin 750 MG/150 ML 750 MG/150 ML BAG IVPB SCH (08:04)
[2018-02-28] MEDS: Sodium Ferric Gluconat/Sucrose 125 MG in 0.9 % Sodium Chloride 100 ML IVPB SCH (08:38)
[2018-02-28] MEDS: Ampicillin/Sulbactam 3,000 MG in 0.9 % Sodium Chloride Mini Bag 100 ML IVPB SCH ×3 (10:14→18:25)
--- NOTE | 2018-02-28 10:15 | Infectious Disease Progress No ---
Date of Encounter: 02/28/18 Time of Encounter: 10:05 - Assessment and Plan (1) Severe sepsis Current Visit: Yes Status: Acute Resolved On admission patient had 3 SIRS criteria plus acute kidney injury Likely secondary to complicated UTI. (2) UTI (urinary tract infection) Current Visit: Yes Status: Acute Urine culture positive for Escherichia coli that is pansensitive Urine culture also positive for Enterococcus faecalis that is ampicillin sensitive Vancomycin and levofloxacin discontinued. Continue Unasyn. If patient continues to do better, consider switching to Augmentin by mouth to finish a 14 day course total. Await blood cultures to finalize Monitor labs and for drug toxicity Qualifiers: Urinary tract infection type: acute cystitis Hematuria presence: without hematuria Qualified Code(s): N30.00 - Acute cystitis without hematuria (3) Metastatic urothelial carcinoma Current Visit: Yes Status: Chronic With metastases to the liver and the lungs. Last time he was seen by hematology oncology was January 23 and received chemotherapy Prognosis guarded (4) Repeated falls Current Visit: Yes Status: Acute - Subjective Interval history: Patient seen and examined. No acute events overnight. Patient is resting comfortably in bed. Patient reports feeling better overall. Reports some ongoing back pain from microfractures. States weakness is the same since admission. Denies changes to urostomy and port. Denies fever, chills. Denies nausea/vomiting, abdominal pain, diarrhea/constipation. Denies chest pain, shortness of breath, swelling. Denies numbness, tingling. Denies auditory or visual changes. Infect Dis PN-Objective Data - Labs CBC & Chem 7: 03/01/18 04:00 03/01/18 04:00 Labs: Laboratory Results - last 24 hr 02/27/18 21:40 Vancomycin Trough 21 H Cultures: Cultures 02/26/18 09:43 Blood Culture - Preliminary Central Venous Catheter Culture is incubating and being continuously monitored for growth. Final report to follow. 02/26/18 09:46 Blood Culture - Preliminary Peripheral Venipuncture Culture is incubating and being continuously monitored for growth. Final report to follow. Serology 02/26/18 Range/Units 12:45 Urine Color Yellow (Yellow) Urine Clarity Clear (Clear) Urine pH 6.5 (5.0-8.0) pH Units Ur Specific [place] 1.012 (1.010-1.025) Urine Protein 100 H (Neg-Trace) mg/dL Urine Glucose (UA) Normal (Normal) mg/dL Urine Ketones Negative (Negative) mg/dL Urine Blood Moderate H (Negative) Urine Nitrite Negative (Negative) Urine Bilirubin Negative (Negative) Urine Urobilinogen Normal (Normal) mg/dL Ur Leukocyte Esterase Negative (Negative) Urine Microscopic RBC 3-5 H (0-3) per hpf Urine Microscopic WBC 5-15 H (0-3) per hpf Ur Squamous Epith Cells Many H (None-Few) per lpf Urine Bacteria None Seen (None-Few) per hpf Hyaline Casts None Seen (None-Few) per lpf Urine Yeast Few H (None Seen) per hpf Ur Culture Indicated? NO (NO) Exam - Constitutional Vitals: Temp Pulse Resp BP Pulse Ox 99.0 F 85 16 149/82 98 02/28/18 07:22 02/28/18 07:22 02/28/18 07:22 02/28/18 07:22 02/28/18 07:22 General appearance: cooperative, no acute distress, obese, no febrile - Head Head exam: Present: atraumatic, normal inspection, normocephalic - Eye Eye exam: Present: EOMI, normal appearance, PERRL Pupils: Present: normal accommodation Additional comments: right ptosis - ENT ENT exam: Present: mucous membranes moist, normal oropharynx - Neck Neck exam: Present: normal inspection - Respiratory Respiratory exam: Present: CTAB. Absent: rales, respiratory distress, rhonchi, wheezes - Cardiovascular Cardiovascular exam: Present: RRR, +S1, +S2 Additional comments: No erythema, tenderness, or swelling around port. - GI/Abdominal GI/Abdominal exam: Present: normal bowel sounds, soft. Absent: distended, tenderness - Extremities Exam Extremities exam: Present: normal inspection. Absent: joint swelling, pedal edema, tenderness - Neurological Exam Neurological exam: Present: altered, oriented X3, no focal deficits - Psychiatric Psychiatric exam: Present: normal affect, normal mood - Skin Skin exam: Present: dry, intact, normal color, warm - Additional findings Additional findings: Urostomy bag filled with clear yellow urine, no blood. - VTE Documentation of Mechanical Device: Intermittent pneumatic compression device Consult Discharge Plan - Plan Referrals: Edmund Melton DO [Primary Care Provider] - 02/28/18 11:30 am Justina Bejarano MD [Partnered Physician] - (SENT WEB REQUEST ON 02-21-18 @[id number]) - Attending Attestation I examined this patient and my medical decision-making was reviewed with the Resident Physician. I agree with the documented findings, disposition and treatment plan as described except to the extent set forth below.
--- NOTE | 2018-02-28 12:52 | Internal Med Progress Note ---
Hospitalist Progress Note - Encounter Date of Encounter: 02/28/18 Time of Encounter: 12:18 - Subjective Interval History: Patient seen and examined this morning. No acute overnight events. Offers no new complains. - Exam Vitals: Temp Pulse Resp BP Pulse Ox 99.2 F 90 16 117/66 97 02/28/18 11:14 02/28/18 11:14 02/28/18 11:14 02/28/18 11:14 02/28/18 11:14 Exam: CONSTITUTIONAL: patient appears as an age appropriate male in no acute distress. EYES Clear sclerae, bilateral pupils are equal, reactive to light. EMOI. RESPIRATORY: No accessory muscle use, bilateral clear to auscultation, no wheezing, no crackles/rales. CARDIOVASCULAR: Regular heart rate, normal S1 and S2, no murmurs GASTROINTESTINAL: bowel sounds present, soft, no tenderness. MUSCULOSKELETAL: Joints in normal range of motion, no clubbing, no edema, no cyanosis. Bilateral peripheral pulses 2+. NEUROLOGIC: CN II to XII are grossly intact, no focal neurological deficit. - Assessment and Plan (1) UTI (urinary tract infection) Current Visit: Yes Status: Acute (2) DVT prophylaxis Current Visit: Yes Status: Acute (3) Hypertension Current Visit: Yes Status: Chronic (4) Anemia Current Visit: Yes Status: Acute (5) DUC (acute kidney injury) Current Visit: Yes Status: Acute (6) Acute GI bleeding Current Visit: Yes Status: Ruled-out (7) Severe sepsis Current Visit: Yes Status: Acute (8) Metastatic urothelial carcinoma Current Visit: Yes Status: Chronic (9) Repeated falls Current Visit: Yes Status: Acute - Summary of Assessment and Plan Summary of Assessment and Plan: UTI - Started on treatement for complicated UTI related to the status post cystectomy, prostatectomy, and left nephrectomy with right urostomy at [facility] secondary to his bladder cancer - urine growing E coli and enterococci, both are sensitive to ampicillin. BC on 02/20 are negative - Patient developed fever 02/25 of 103 , ATB broaden to vancomycin. levaquin was continued. new BC from periphery and central line were obtained 02/26. - ID recommendation appreciated. Start the patient on Unasyn. Vanc and levoquin discontinued. Will switch to Augmentin to finish a 14 day treatment if continues to be respond clinically. Hypertension -continue home meds. Anemia - had normal EGD and colonoscopy on 02/22 - likley related to wide spread cancer and chem treatment - s/p 2 units of PRBC, Hb stable DUC - resolved Severe sepsis -with new fever and leukocytosis. f/u blood culture from port. CXR with no Pneumonia. abnormal UA but poor sample. Metastatic urothelial carcinoma - metastatase to lung, liver, ongoing chemo. Repeated falls - await for SNF. precert underway. DVT prophylaxis - heparin SC - Time Spent with Patient Total time spent is greater than 50% in coordination of care (as documented) at patient's floor/unit and/or counseling patient: Internal Medicine: Result - Labs CBC & Chem 7: 02/27/18 06:00 02/27/18 06:00 - VTE Documentation of Mechanical Device: Intermittent pneumatic compression device Consult Discharge Plan - Plan Referrals: Edmund Meltno DO [Primary Care Provider] - 02/28/18 11:30 am Justina Bejarano MD [Partnered Physician] - (SENT WEB REQUEST ON 02-21-18 @1112) (1) UTI (urinary tract infection) Qualifiers: Urinary tract infection type: acute cystitis Hematuria presence: without hematuria Qualified Code(s): N30.00 - Acute cystitis without hematuria (3) Hypertension Qualifiers: Hypertension type: essential hypertension Qualified Code(s): I10 - Essential (primary) hypertension (4) Anemia Qualifiers: Anemia type: iron deficiency Iron deficiency anemia type: other iron deficiency Qualified Code(s): D50.8 - Other iron deficiency anemias
[2018-02-28] MEDS: Acetaminophen 325 MG TABLET PO PRN (21:02)
[2018-03-01] MEDS: 0.9 % Sodium Chloride 1,000 ML IVC SCH ×2 (00:13→11:22)
[2018-03-01] MEDS: Ampicillin/Sulbactam 3,000 MG in 0.9 % Sodium Chloride Mini Bag 100 ML IVPB SCH ×3 (00:14→12:52)
[2018-03-01 04:39] LABS: Hematocrit 25.3 % (37.5-50.1); Mean Corpuscular HGB Conc 31.6 g/dL (31.6-35.5); Mean Corpuscular Hemoglobin 28.9 pg (28.0-33.3); Mean Corpuscular Volume 91.3 fL (83.0-100.0); Mean Platelet Volume 9.8 fL (9.4-12.4); Platelet Count 185 K/mcL (140-400); Red Blood Count 2.77 M/mcL (4.19-5.50); Red Cell Distribution Width 21.3 % (11.5-14.5)
[2018-03-01 04:52] LABS: BUN/Creatinine Ratio 11 (6-26); Blood Urea Nitrogen 8 mg/dL (8-23); Calcium 7.8 mg/dL (8.6-10.3); Carbon Dioxide 22 mEq/L (23-29); Chloride 109 mEq/L (98-107); Glucose 107 mg/dL (70-105); Osmolality,Calculated 289 (280-300); Sodium 140 mEq/L (136-145); eGFR For Non-African Americans > 60 (> 60)
[2018-03-01] MEDS: *HR* Heparin 5,000 UNIT/ML VIAL SQ SCH ×2 (05:41→17:39)
--- NOTE | 2018-03-01 08:04 | Urology - Consult Note ---
Date of Encounter: 03/01/18 Time of Encounter: 07:56 - Assessment and Plan (1) Penile bleeding Current Visit: Yes Status: Acute Assessment and plan: Patient is a 62 year old male who presents with a history metastatic urothelial cancer and was admitted secondary to "weakness" for UTI and sepsis protocol. Patient was placed on Heparin 02/23/18 and is now noticing penile bleeding. Patient is status post cystectomy, prostatectomy, and left nephrectomy. Bleeding is well controlled and minimal at present. Patient may continue Heparin and monitor bleeding for now, as it is minimal and likely due to anticoagulation. (2) Metastatic urothelial carcinoma Current Visit: Yes Status: Chronic Assessment and plan: Patient is a 62 year old male who presents with metastatic urothelial cancer. Patient is status post cystecomy, prostatectomy, left nephrectomy. Patient is unable to tolerate chemotherapy at this time. CT scan suggests progression with liver metastases. Patient is established with [facility]. (3) UTI (urinary tract infection) Current Visit: Yes Status: Acute Assessment and plan: Patient is a 62 year old male who presents with E.Coli and Enterococcus UTI. Final blood cultures are pending. Patient is placed on Unasyn and shown improvement with fever and WBC count. Qualifiers: Urinary tract infection type: acute cystitis Hematuria presence: without hematuria Qualified Code(s): N30.00 - Acute cystitis without hematuria Urology CN:HPI Consult date: 03/01/18 Reason for consult Urology: Other (bleeding at urethral meatus) History of present illness: Patient is a 62 year old male who presents with a history of metastatic urothelial carcinoma. Patient initially presented to the emergency department with complaints of frequent falls and weakness. Patient states he's been unable to take chemotherapy infusions for the last month due to weakness. Patient is three years status post cystectomy, prostatectomy and left nephrectomy. Patient was placed on Heparin during hospital stay and is now noticing painless, bloody discharge from the penis. Patient denies bleeding, pain or discomfort at urostomy site. Past Med Surg Social Fam HX - Past Medical History Medical history: cancer, diabetes, hyperlipidemia, hypertension, liver disease, other Additional medical history: Prostate, bladder, kidney, lung cancer onset 2012 Psychiatric history: no psych history - Past Surgical History Surgical History: other Additional surgical history: bladder and prostate removed, kidney removed, urostomy - Social History Smoking Status: Never smoker Smokeless Tobacco Status: No Alcohol use: none Drug use: none - Family History Mother Living Status: Cause of : [place] Hx Family Cardiac Disorders: Yes Father Living Status: Hx Family Cancer: Yes (liver) Medications and Allergies Aspirin 81 mg PO DAILY 02/21/17 [History] Carvedilol [Coreg] 6.25 mg PO BID 02/21/17 [History] Ferrous Sulfate [Iron] 325 mg PO TID 02/21/17 [History] Gabapentin [Neurontin] 600 mg PO BID 02/21/17 [History] Multivits,Ca,Min/Iron/FA/Lycop [Centrum Men's Tablet] 1 tab PO DAILY 02/21/17 [ History] Orphenadrine Citrate 100 mg PO BID 02/21/17 [History] Rosuvastatin [Crestor] 40 mg PO HS 02/21/17 [History] Valsartan [Diovan] 80 mg PO DAILY 02/21/17 [History] Ascorbate Calcium [Vitamin C] 500 mg PO DAILY 03/22/17 [History] Docusate [Colace] 100 mg PO DAILY 03/22/17 [History] Folic Acid 1 mg PO DAILY #30 12/19/17 [Rx] OxyCODONE Immed Rel [Roxicodone 10 MG] 10 mg PO TID PRN 01/10/18 [History] Methyl Salicylate/Menthol [Salonpas Patch] 1 each TP DAILY PRN 02/21/18 [History ] 3 Allergy/AdvReac Type Severity Reaction Status Date / Time No Known Allergies Allergy Verified 02/21/18 09:00 Review of Systems - Constitutional chills, fatigue, fever(s), weakness - EENT Nose, mouth and throat: no dizziness, no headache(s) - Cardiovascular no chest pain, no dyspnea - Respiratory no cough, no dyspnea - Gastrointestinal nausea, no abdominal pain - Genitourinary penile discharge, no difficulty urinating, no flank pain, no genital pain, no hematuria - Musculoskeletal muscle weakness, no back pain - Integumentary no lesions, no rash - Neurological weakness, no confusion, no syncope - Psychiatric no anxiety, no confusion Exam Initial Vital Signs Pulse 79 02/21/18 01:26 - General physical appearance Present: no distress, chronically ill - Eyes Present: PERRL, normal ocular movement - ENT Present: no hearing loss, no congestion - Neck Present: no masses, trachea midline - Respiratory Present: normal respiratory effort - Cardiovascular Cardiovascular exam IM: RRR - Abdomen Abdomen: Present: soft, non tender, surgical scars (urostomy site clean, dry, intact; draining sufficient amount of clear urine ) - Genitourinary Penis: Present: edema, retractable foreskin. Absent: circumsized Urethral meatis: Present: patent (small dark clots at urethral meatus; no bright red or active bleeding) - Integumentary Present: no rash, no abnormal pigmentation - Neurologic Present: normal coordination Urology Results - Labs 03/01/18 04:00 03/01/18 04:00 Abnormal lab results RBC 2.77 M/mcL (4.19-5.50) L 03/01/18 04:00 Hgb 8.0 g/dL (12.9-16.9) L 03/01/18 04:00 Hct 25.3 % (37.5-50.1) L 03/01/18 04:00 RDW 21.3 % (11.5-14.5) H 03/01/18 04:00 Neutrophils # 9.6 K/mcL (1.6-8.9) H 02/27/18 06:00 Potassium 3.0 mEq/L (3.5-5.1) L 03/01/18 04:00 Chloride 109 mEq/L (98-107) H 03/01/18 04:00 Carbon Dioxide 22 mEq/L (23-29) L 03/01/18 04:00 Glucose 107 mg/dL (70-105) H 03/01/18 04:00 POC Glucose 111 mg/dL (70-99) H 02/26/18 07:53 Calcium 7.8 mg/dL (8.6-10.3) L 03/01/18 04:00 Iron 21 mcg/dL (65-175) L 02/22/18 03:02 % Saturation 9 % (20-55) L 02/22/18 03:02 Transferrin 168 mg/dL (203-362) L 02/22/18 03:02 Ferritin 1075 ng/mL (20-250) H 02/22/18 03:02 AST 100 Units/L (13-39) H 02/21/18 01:39 ALT 60 Units/L (7-52) H 02/21/18 01:39 Alkaline Phosphatase 763 Units/L (34-104) H 02/21/18 01:39 Serum Total Protein 5.5 g/dL (6.4-8.9) L 02/21/18 01:39 Albumin 2.4 g/dL (3.5-5.7) L 02/21/18 01:39 Albumin/Globulin Ratio 0.8 (1.1-2.2) L 02/21/18 01:39 Urine Protein 100 mg/dL (Neg-Trace) H 02/26/18 12:45 Urine Blood Moderate (Negative) H 02/26/18 12:45 Urine Microscopic RBC 3-5 per hpf (0-3) H 02/26/18 12:45 Urine Microscopic WBC 5-15 per hpf (0-3) H 02/26/18 12:45 Ur Squamous Epith Cells Many per lpf (None-Few) H 02/26/18 12:45 Urine Yeast Few per hpf (None Seen) H 02/26/18 12:45 Vancomycin Trough 21 mcg/mL (5-10) H 02/27/18 21:40 Diabetes panel 03/01/18 Range/Units 04:00 Sodium 140 (136-145) mEq/L Potassium 3.0 L (3.5-5.1) mEq/L Chloride 109 H (98-107) mEq/L Carbon Dioxide 22 L (23-29) mEq/L BUN 8 (8-23) mg/dL Creatinine 0.71 (0.70-1.30) mg/dL Glucose 107 H (70-105) mg/dL Calcium 7.8 L (8.6-10.3) mg/dL Calcium panel 03/01/18 Range/Units 04:00 Calcium 7.8 L (8.6-10.3) mg/dL Pituitary panel 03/01/18 Range/Units 04:00 Sodium 140 (136-145) mEq/L Potassium 3.0 L (3.5-5.1) mEq/L Chloride 109 H (98-107) mEq/L Carbon Dioxide 22 L (23-29) mEq/L BUN 8 (8-23) mg/dL Creatinine 0.71 (0.70-1.30) mg/dL Glucose 107 H (70-105) mg/dL Calcium 7.8 L (8.6-10.3) mg/dL Adrenal panel 03/01/18 Range/Units 04:00 Sodium 140 (136-145) mEq/L Potassium 3.0 L (3.5-5.1) mEq/L Chloride 109 H (98-107) mEq/L Carbon Dioxide 22 L (23-29) mEq/L BUN 8 (8-23) mg/dL Creatinine 0.71 (0.70-1.30) mg/dL Glucose 107 H (70-105) mg/dL Calcium 7.8 L (8.6-10.3) mg/dL All other labs normal. Consult Discharge Plan - Plan Referrals: Edmund Melton DO [Primary Care Provider] - 02/28/18 11:30 am Justina Bejarano MD [Partnered Physician] - (SENT WEB REQUEST ON 02-21-18 @5025)
[2018-03-01] MEDS: Folic Acid 1 MG TABLET PO SCH (08:05)
[2018-03-01] MEDS: Gabapentin 300 MG CAPSULE PO SCH (08:06)
[2018-03-01] MEDS: Ascorbic Acid 500 MG TABLET PO SCH (08:06)
[2018-03-01] MEDS: Aspirin 81 MG TAB.CHEW PO SCH (08:06)
[2018-03-01] MEDS: Orphenadrine 100 MG TABLET.ER PO SCH (08:06)
--- NOTE | 2018-03-01 08:58 | Infectious Disease Progress No ---
Date of Encounter: 03/01/18 Time of Encounter: 08:30 - Assessment and Plan (1) Severe sepsis Current Visit: Yes Status: Acute Resolved. On admission, patient had 3 SIRS criteria plus acute kidney injury. Since admission, all vital signs are normalized. Leukocytosis is resolved. Likely secondary to complicated UTI. (2) UTI (urinary tract infection) Current Visit: Yes Status: Acute Urine culture positive for Escherichia coli that is pansensitive Urine culture also positive for Enterococcus faecalis that is ampicillin sensitive Blood cultures 9/3 are NGTD. Vancomycin and levofloxacin discontinued. Continue Unasyn. If patient continues to do better, consider switching to Augmentin by mouth to finish a 14 day course total. Await blood cultures to finalize. Monitor labs and for drug toxicity. Qualifiers: Urinary tract infection type: acute cystitis Hematuria presence: without hematuria Qualified Code(s): N30.00 - Acute cystitis without hematuria (3) Metastatic urothelial carcinoma Current Visit: Yes Status: Chronic With metastases to the liver and the lungs. Last time he was seen by hematology oncology was January 23 and received chemotherapy Prognosis guarded (4) Repeated falls Current Visit: Yes Status: Acute - Subjective Interval history: Patient seen and examined. No acute events overnight. Patient is resting comfortably in bed. Patient reports feeling "better" than yesterday. Reports some ongoing back pain from microfractures. Patient has no new complaints. Denies changes to urostomy and port. Denies fever, chills. Denies nausea/ vomiting, abdominal pain, diarrhea/constipation. Denies chest pain, shortness of breath, swelling. Denies numbness, tingling. Denies auditory or visual changes. Infect Dis PN-Objective Data - Labs CBC & Chem 7: 03/01/18 04:00 03/01/18 04:00 Labs: Laboratory Results - last 24 hr 03/01/18 03/01/18 04:00 04:00 WBC 10.4 RBC 2.77 L Hgb 8.0 L Hct 25.3 L MCV 91.3 MCH 28.9 MCHC 31.6 RDW 21.3 H Plt Count 185 MPV 9.8 Sodium 140 Potassium 3.0 L Chloride 109 H Carbon Dioxide 22 L BUN 8 Creatinine 0.71 Est GFR ( Amer) > 60 Est GFR (Non-Af Amer) > 60 BUN/Creatinine Ratio 11 Glucose 107 H Calculated Osmolality 289 Calcium 7.8 L Cultures: Cultures 02/26/18 09:43 Blood Culture - Preliminary Central Venous Catheter Culture is incubating and being continuously monitored for growth. Final report to follow. 02/26/18 09:46 Blood Culture - Preliminary Peripheral Venipuncture Culture is incubating and being continuously monitored for growth. Final report to follow. Serology 02/26/18 Range/Units 12:45 Urine Color Yellow (Yellow) Urine Clarity Clear (Clear) Urine pH 6.5 (5.0-8.0) pH Units Ur Specific [place] 1.012 (1.010-1.025) Urine Protein 100 H (Neg-Trace) mg/dL Urine Glucose (UA) Normal (Normal) mg/dL Urine Ketones Negative (Negative) mg/dL Urine Blood Moderate H (Negative) Urine Nitrite Negative (Negative) Urine Bilirubin Negative (Negative) Urine Urobilinogen Normal (Normal) mg/dL Ur Leukocyte Esterase Negative (Negative) Urine Microscopic RBC 3-5 H (0-3) per hpf Urine Microscopic WBC 5-15 H (0-3) per hpf Ur Squamous Epith Cells Many H (None-Few) per lpf Urine Bacteria None Seen (None-Few) per hpf Hyaline Casts None Seen (None-Few) per lpf Urine Yeast Few H (None Seen) per hpf Ur Culture Indicated? NO (NO) Exam - Constitutional Vitals: Temp Pulse Resp BP Pulse Ox 99.5 F 84 16 123/68 96 03/01/18 07:22 03/01/18 07:22 03/01/18 07:22 03/01/18 07:22 03/01/18 07:22 General appearance: average body habitus, cooperative, no acute distress, no febrile - Eye Eye exam: Present: EOMI, PERRL. Absent: normal appearance (strabismus right eye ) Pupils: Present: normal accommodation - Neck Neck exam: Present: normal inspection - Respiratory Respiratory exam: Present: CTAB. Absent: rales, respiratory distress, rhonchi, wheezes - Cardiovascular Cardiovascular exam: Present: RRR, +S1, +S2 - GI/Abdominal GI/Abdominal exam: Present: normal bowel sounds, soft. Absent: distended, tenderness - Extremities Exam Extremities exam: Present: normal inspection. Absent: joint swelling, pedal edema, tenderness - Neurological Exam Neurological exam: Present: alert, oriented X3, no focal deficits - Psychiatric Psychiatric exam: Present: normal affect, normal mood - Skin Skin exam: Present: dry, intact, normal color, warm - VTE Documentation of Mechanical Device: Graduated compression elastic hosiery Consult Discharge Plan - Plan Referrals: Edmund Melton DO [Primary Care Provider] - 02/28/18 11:30 am Justina Bejarano MD [Partnered Physician] - (SENT WEB REQUEST ON 02-21-18 @6890) Prescriptions: Amoxicillin/Clavulanate [Augmentin] 500 mg PO BIDWM 5 Days #10 tablet - Attending Attestation I examined this patient and my medical decision-making was reviewed with the Resident Physician. I agree with the documented findings, disposition and treatment plan as described except to the extent set forth below.
[2018-03-01] MEDS: Sodium Ferric Gluconat/Sucrose 125 MG in 0.9 % Sodium Chloride 100 ML IVPB SCH (10:15)
[2018-03-01 11:06] VITALS: BP 130/77
--- NOTE | 2018-03-01 11:09 | Internal Med Progress Note ---
Hospitalist Progress Note - Encounter Date of Encounter: 03/01/18 Time of Encounter: 11:09 - Subjective Interval History: Patient seen and examined this morning. no new complains. - Exam Vitals: Temp Pulse Resp BP Pulse Ox 99.8 F H 80 16 130/77 95 03/01/18 11:03 03/01/18 11:03 03/01/18 11:03 03/01/18 11:03 03/01/18 11:03 Exam: CONSTITUTIONAL: patient appears as an age appropriate male in no acute distress. EYES Clear sclerae, bilateral pupils are equal, reactive to light. EMOI. RESPIRATORY: No accessory muscle use, bilateral clear to auscultation, no wheezing, no crackles/rales. CARDIOVASCULAR: Regular heart rate, normal S1 and S2, no murmurs GASTROINTESTINAL: bowel sounds present, soft, no tenderness. Has urostomy bag. MUSCULOSKELETAL: Joints in normal range of motion, no clubbing, no edema, no cyanosis. Bilateral peripheral pulses 1+. NEUROLOGIC: CN II to XII are grossly intact, no focal neurological deficit. - Assessment and Plan (1) UTI (urinary tract infection) Current Visit: Yes Status: Acute (2) DVT prophylaxis Current Visit: Yes Status: Acute (3) Hypertension Current Visit: Yes Status: Chronic (4) Anemia Current Visit: Yes Status: Acute (5) DUC (acute kidney injury) Current Visit: Yes Status: Acute (6) Acute GI bleeding Current Visit: Yes Status: Ruled-out (7) Severe sepsis Current Visit: Yes Status: Acute (8) Metastatic urothelial carcinoma Current Visit: Yes Status: Chronic (9) Repeated falls Current Visit: Yes Status: Acute - Summary of Assessment and Plan Summary of Assessment and Plan: UTI - Started on treatement for complicated UTI related to the status post cystectomy, prostatectomy, and left nephrectomy with right urostomy at [facility] secondary to his bladder cancer - urine growing E coli and enterococci, both are sensitive to ampicillin. BC on 02/20 are negative - Patient developed fever 02/25 of 103 , ATB broaden to vancomycin. levaquin was continued. new BC from periphery and central line were obtained 02/26. - ID recommendation appreciated. patient started on Unasyn. Vanc and levoquin discontinued. Will switch to Augmentin to finish a 14 day treatment if continues to be respond clinically. Hypertension -continue home meds. Anemia - had normal EGD and colonoscopy on 02/22 - likley related to wide spread cancer and chem treatment - s/p 2 units of PRBC, Hb stable Hypokalemia - Replete potassium - Monitor for now. DUC - resolved Severe sepsis - with new fever and leukocytosis. Culture NGTD. CXR with no Pneumonia. - Likely from complicated UTI which is being treated with Unasyn. Metastatic urothelial carcinoma - metastatase to lung, liver, ongoing chemo. Repeated falls - await for SNF. precert underway. DVT prophylaxis - heparin SC - Time Spent with Patient Total time spent is greater than 50% in coordination of care (as documented) at patient's floor/unit and/or counseling patient: Internal Medicine: Result - Labs CBC & Chem 7: 03/01/18 04:00 03/01/18 04:00 Labs: Short CBC 03/01/18 Range/Units 04:00 WBC 10.4 (4.3-11.1) K/mcL Hgb 8.0 L (12.9-16.9) g/dL Hct 25.3 L (37.5-50.1) % Plt Count 185 (140-400) K/mcL BMP 03/01/18 04:00 Sodium 140 Potassium 3.0 L Chloride 109 H Carbon Dioxide 22 L BUN 8 Creatinine 0.71 Glucose 107 H Calcium 7.8 L - VTE Documentation of Mechanical Device: Graduated compression elastic hosiery Consult Discharge Plan - Plan Referrals: Edmund Melton DO [Primary Care Provider] - 02/28/18 11:30 am Justina Bejarano MD [Partnered Physician] - (SENT WEB REQUEST ON 02-21-18 @1112) (1) UTI (urinary tract infection) Qualifiers: Urinary tract infection type: acute cystitis Hematuria presence: without hematuria Qualified Code(s): N30.00 - Acute cystitis without hematuria (3) Hypertension Qualifiers: Hypertension type: essential hypertension Qualified Code(s): I10 - Essential (primary) hypertension (4) Anemia Qualifiers: Anemia type: iron deficiency Iron deficiency anemia type: other iron deficiency Qualified Code(s): D50.8 - Other iron deficiency anemias
--- NOTE | 2018-03-01 16:04 | Discharge Summary ---
- NOTES TO OUTPATIENT PROVIDER Notes to Outpatient Provider: Treated for complicated UTI. GI workup for bleeding negative. Discharge on Augmentin. Orders not resulted at time of discharge: Pending orders 02/26/18 09:43 Culture,Blood [BC] Stat 02/26/18 09:46 Culture,Blood [BC] Stat Date of Encounter: 03/01/18 Time of Encounter: 15:58 - Discharge Diagnosis (1) UTI (urinary tract infection) Priority: Primary Status: Acute Qualifiers: Urinary tract infection type: acute cystitis Hematuria presence: without hematuria Qualified Code(s): N30.00 - Acute cystitis without hematuria (2) DVT prophylaxis Priority: Secondary Status: Acute (3) Hypertension Priority: Secondary Status: Chronic Qualifiers: Hypertension type: essential hypertension Qualified Code(s): I10 - Essential (primary) hypertension (4) Anemia Priority: Secondary Status: Acute Qualifiers: Anemia type: iron deficiency Iron deficiency anemia type: other iron deficiency Qualified Code(s): D50.8 - Other iron deficiency anemias (5) DUC (acute kidney injury) Priority: Secondary Status: Acute (6) Acute GI bleeding Priority: Primary Status: Ruled-out (7) Severe sepsis Priority: Primary Status: Acute (8) Metastatic urothelial carcinoma Priority: Secondary Status: Chronic (9) Repeated falls Priority: Secondary Status: Acute Hospital course: Mr. Randolph is a 62 year old male admitted because of falls. Also found to have sepsis from complicated UTI for which patient receive IV antibiotic initially levaquin which was later switched to Unasyn based on culture and sensitivity. Patient also had drop in hemoglobin compared to baseline and positive stool occult blood . He underwent GI workup including EGD and colonoscopy which was unremarkable. He said he CAD resolved. Patient had a mild penile bleeding for which urology was consulted which which is thought to be due to heparin he was getting for DVT. No further intervention was made. Patient was discharged on the oral antibiotics to senior care facility. - Time Spent with Patient Total time spent providing and/or coordinating discharge services: Greater than 30 minutes - Discharge Medications Prescriptions: Amoxicillin/Clavulanate [Augmentin] 500 mg PO BIDWM 5 Days #10 tablet Home Medications: Aspirin 81 mg PO DAILY 02/21/17 [History] Carvedilol [Coreg] 6.25 mg PO BID 02/21/17 [History] Ferrous Sulfate [Iron] 325 mg PO TID 02/21/17 [History] Gabapentin [Neurontin] 600 mg PO BID 02/21/17 [History] Multivits,Ca,Min/Iron/FA/Lycop [Centrum Men's Tablet] 1 tab PO DAILY 02/21/17 [ History] Orphenadrine Citrate 100 mg PO BID 02/21/17 [History] Rosuvastatin [Crestor] 40 mg PO HS 02/21/17 [History] Valsartan [Diovan] 80 mg PO DAILY 02/21/17 [History] Ascorbate Calcium [Vitamin C] 500 mg PO DAILY 03/22/17 [History] Docusate [Colace] 100 mg PO DAILY 03/22/17 [History] Folic Acid 1 mg PO DAILY #30 12/19/17 [Rx] OxyCODONE Immed Rel [Roxicodone 10 MG] 10 mg PO TID PRN 01/10/18 [History] Methyl Salicylate/Menthol [Salonpas Patch] 1 each TP DAILY PRN 02/21/18 [History ] Amoxicillin/Clavulanate [Augmentin] 500 mg PO BIDWM 5 Days #10 tablet 03/01/18 [ Rx] Allergies/Adverse Reactions: 3 Allergy/AdvReac Type Severity Reaction Status Date / Time No Known Allergies Allergy Verified 02/21/18 09:00 Date of admission: 02/21/18 01:16 Primary care physician: Edmund Melton DO Consults: 02/21/18 02:01 Consult to Physician [CONS] Routine Consulting Provider: Justina Bejarano Reason for Consult: GI bleed Call Completed: Yes 02/21/18 02:06 Consult to Occupational Therapy [CONS] Routine Comment: Evaluate, develop and implement POC Reason for Consult: repeated falls Does patient have active BEDREST order?: No Is patient medically & hemodynamically stable?: Yes Consult to Physical Therapy [CONS] Routine Comment: Evaluate, develop and implement POC Reason for Consult: Repeated falls Does patient have active BEDREST order?: No Is patient medically & hemodynamically stable?: Yes 02/22/18 19:10 Consult to It Consulting Director [CONS] Routine Reason for SW Consult: discharge planning, therapy recommending SNF 03/01/18 05:10 Consult to Urology [CONS] Routine Consulting Provider: Urology Jesi Reason for Consult: urethral bleeding Call Completed: No Discharging clinician: Missy Warren - Constitutional Vitals: Temp Pulse Resp BP Pulse Ox 99.8 F H 80 16 130/77 95 03/01/18 11:03 03/01/18 11:03 03/01/18 11:03 03/01/18 11:03 03/01/18 11:03 Exam: CONSTITUTIONAL: patient appears as an age appropriate male in no acute distress. EYES Clear sclerae, bilateral pupils are equal, reactive to light. EMOI. RESPIRATORY: No accessory muscle use, bilateral clear to auscultation, no wheezing, no crackles/rales. CARDIOVASCULAR: Regular heart rate, normal S1 and S2, no murmurs GASTROINTESTINAL: bowel sounds present, soft, no tenderness. Has urostomy bag. MUSCULOSKELETAL: Joints in normal range of motion, no clubbing, no edema, no cyanosis. Bilateral peripheral pulses 1+. NEUROLOGIC: CN II to XII are grossly intact, no focal neurological deficit. - Patient Status Disposition: Transfer SNF Condition: Good Overall status at discharge: patient is progressing back to baseline - Discharge Instructions Follow Up With: Edmund Melton DO [Primary Care Provider] - 02/28/18 11:30 am Justina Bejarano MD [Partnered Physician] - (SENT WEB REQUEST ON 02-21-18 @1710) - Diet and Activity Activity: as per physical therapy - VTE Documentation of Mechanical Device: Graduated compression elastic hosiery
--- NOTE | 2018-03-01 16:14 | Physician Discharge Referral ---
ExtendedCare Referral Info Institutional Level of Care: Skilled - Diagnosis (1) UTI (urinary tract infection) Priority: Primary Status: Acute (2) DVT prophylaxis Priority: Secondary Status: Acute (3) Hypertension Status: Chronic (4) Anemia Status: Acute (5) DUC (acute kidney injury) Priority: Primary Status: Acute (6) Acute GI bleeding Priority: Primary Status: Ruled-out (7) Severe sepsis Priority: Primary Status: Acute (8) Metastatic urothelial carcinoma Status: Chronic (9) Repeated falls Status: Acute - Transfer Medications Prescriptions: Amoxicillin/Clavulanate [Augmentin] 500 mg PO BIDWM 5 Days #10 tablet Home Medications: Aspirin 81 mg PO DAILY 02/21/17 [History] Carvedilol [Coreg] 6.25 mg PO BID 02/21/17 [History] Ferrous Sulfate [Iron] 325 mg PO TID 02/21/17 [History] Gabapentin [Neurontin] 600 mg PO BID 02/21/17 [History] Multivits,Ca,Min/Iron/FA/Lycop [Centrum Men's Tablet] 1 tab PO DAILY 02/21/17 [ History] Orphenadrine Citrate 100 mg PO BID 02/21/17 [History] Rosuvastatin [Crestor] 40 mg PO HS 02/21/17 [History] Valsartan [Diovan] 80 mg PO DAILY 02/21/17 [History] Ascorbate Calcium [Vitamin C] 500 mg PO DAILY 03/22/17 [History] Docusate [Colace] 100 mg PO DAILY 03/22/17 [History] Folic Acid 1 mg PO DAILY #30 12/19/17 [Rx] OxyCODONE Immed Rel [Roxicodone 10 MG] 10 mg PO TID PRN 01/10/18 [History] Methyl Salicylate/Menthol [Salonpas Patch] 1 each TP DAILY PRN 02/21/18 [History ] Amoxicillin/Clavulanate [Augmentin] 500 mg PO BIDWM 5 Days #10 tablet 03/01/18 [ Rx] Allergies/Adverse Reactions: 3 Allergy/AdvReac Type Severity Reaction Status Date / Time No Known Allergies Allergy Verified 02/21/18 09:00 - Respiratory Orders Smoking Cessation: Smoking cessation has been advised. For more information, call the [place] Tobacco Quit Line at 6-914-ISIJ-NOW. - Advance Directives Code Status: DNR-Arrest/Don't Intubate - Rehabiliation Orders Rehab Orders: Evaluation for Physical Therapy - Diet Orders Regular CERTIFICATION: I certify that the transfer of the above named patient to an Extended Care Facility is necessary for the continuing treatment of the diagnosis listed. The above information is true and accurate reflection of patient's current condition. Confidential - Redisclosure prohibited without a patient's written consent.
== END 2018-03-01 18:33 | DRG 871 ==
LOC: 2NNU 02-21 01:16 → SUATTDRO 02-21 01:16 → 2ANU 02-22 22:07
PROVIDERS: ADMIT Family Medicine; ATTEND Internal Medicine